=== PATIENT | male | born 1970 | race African-American/Black ===

== ENCOUNTER 2017-07-03 13:52 | Inpatient (IN) | payer OTHER ==
[~2017-07-03] VITALS: Ht 162.6 cm; Wt 98.5 kg
[2017-07-03] VITALS (11 sets, daily range): BP systolic 114–152; BP diastolic 67–85; PULSE 55–77; RESP 16–21; TEMP 98–98.2; O2SAT 98–100
[~2017-07-03 13:52] MED LIST: LORTA5 PO; Z.0.NO CURRENT MEDS; ZOFR4TAB3 SL
[2017-07-03] MEDS ORDERED: SODIUM CHLOR 0.9% 1000 ML INJ 1,000 ML IV ONE (14:00)
[2017-07-03] MEDS ORDERED: SODIUM CHLORIDE 0.9% FLUSH 10 ML FLUSH IVF PRN (14:00)
[2017-07-03] MEDS ORDERED: NITROGLYCERIN 2% OINT 1 GM PACKET TOPICAL ONE (14:00)
[2017-07-03] MEDS ORDERED: HEPARIN SODIUM - IV 10,000 UNITS/10 ML VIAL IV PUSH STA (14:00)
--- NOTE | 2017-07-03 14:06 | PD ---
HPI Chief Complaint: STEMI Alert Time Seen by Provider: 13:59 Travel History International Travel<30 days: No Contact w/Intl Traveler<30days: No Traveled to known affect area: No History of Present Illness HPI 46 years old male complained of chest pain. Patient states that the chest pain started about 3 hours prior to arrival. Patient states the pain is pressure pain started in the left chest with radiation the left arm. Patient complains of nausea palpitation and diaphoresis with the chest pain. Patient denies any fever chills. Patient denies any coughing congestion. Patient denies history hypertension, diabetes, hyperlipidemia. Patient is a smoker. Patient denies family history of heart disease. EMS was called. Patient was given aspirin 325 mg p.o. Patient also was given nitroglycerin sublingually with partial relief of the pain. On a scale from 1-10 the chest pain is a 4 now. PFSH Past Medical History Heart Rhythm Problems: No Cardiac Catheterization: No Cardiovascular Problems: Yes High Cholesterol: No Chest Pain: Yes Congestive Heart Failure: No Diabetes: No Diminished Hearing: No Hypertension: No Immunizations Current: Yes Myocardial Infarction: No Past Surgical History Coronary Artery Bypass Graft: No Social History Alcohol Use: No Tobacco Use: Yes (03/11 PPD) Substance Use: No Allergies-Medications (Allergen,Severity, Reaction): Coded Allergies: No Known Allergies (Verified , 08/31/15) Reported Meds & Prescriptions Reported Meds & Active Scripts Active Zofran ODT (Ondansetron HCl) 4 Mg Tab 4 Mg SL QID PRN FOR NAUSEA/VOMITING Lortab 5/325 Tab (Hydrocodone-Acetaminophen) 1 Tab Tab 1 Tab PO QID PRN Reported No Current Meds (Miscellaneous Medication) Misc Review of Systems General / Constitutional: No: Fever Eyes: No: Visual changes HENT: No: Headaches Cardiovascular: Positive: Chest Pain or Discomfort Respiratory: No: Shortness of Breath Gastrointestinal: No: Abdominal Pain Genitourinary: No: Dysuria Musculoskeletal: No: Pain Skin: No Rash Neurologic: No: Weakness Psychiatric: No: Depression Endocrine: No: Polydipsia Hematologic/Lymphatic: No: Easy Bruising Physical Exam Narrative GENERAL: Well-nourished, well-developed patient. SKIN: Focused skin assessment warm/dry. HEAD: Normocephalic. EYES: No scleral icterus. No injection or drainage. NECK: Supple, trachea midline. No JVD or lymphadenopathy. CARDIOVASCULAR: Regular rate and rhythm without murmurs, gallops, or rubs. RESPIRATORY: Breath sounds equal bilaterally. No accessory muscle use. GASTROINTESTINAL: Abdomen soft, non-tender, nondistended. MUSCULOSKELETAL: No cyanosis, or edema. BACK: Nontender without obvious deformity. No CVA tenderness. Neurologic exam normal. Data Data Last Documented VS Vital Signs Date Time Temp Pulse Resp B/P (MAP) Pulse Ox O2 Delivery O2 Flow Rate FiO2 07/03/17 14:02 98 Nasal Cannula 2.00 07/03/17 13:55 98.1 55 21 152/85 (107) Orders Orders Troponin I (07/03/17 14:00) Ckmb (Isoenzyme) Profile (07/03/17 14:00) Complete Blood Count With Diff (07/03/17 14:00) I-Stat Profile (07/03/17 14:00) I-Stat Creatinine (07/03/17 14:00) Calcium (07/03/17 14:00) Magnesium (Mg) (07/03/17 14:00) Prothrombin Time / Inr (Pt) (07/03/17 14:00) Act Partial Throm Time (Ptt) (07/03/17 14:00) B-Type Natriuretic Peptide (07/03/17 14:00) Chest, Single Ap (07/03/17 14:00) Electrocardiogram (07/03/17 14:00) Oxygen Administration (07/03/17 14:00) Iv Access Insert/Monitor (07/03/17 14:00) Oximetry (07/03/17 14:00) Sodium Chlor 0.9% 1000 Ml Inj (Ns 1000 M (07/03/17 14:00) Sodium Chloride 0.9% Flush (Ns Flush) (07/03/17 14:00) Heparin Inj (Heparin Inj) (07/03/17 14:00) Nitroglycerin 2% Oint (Nitroglycerin 2% (07/03/17 14:00) Admit Order (Ed Use Only) (07/03/17 14:02) MDM Medical Decision Making Medical Screen Exam Complete: Yes Emergency Medical Condition: Yes Interpretation(s) EKG show ST elevation in this 2, 3, aVF, T-wave inversion with mild ST depression in V1. Differential Diagnosis Differential diagnosis including STEMI. Narrative Course 46 years old male with chest pain. EKG show ST elevation inferior leads. STEMI was called. Patient was given heparin and Nitropaste. Electrical Mechanic, Dr. Berger, was consulted. Patient will be transferred immediately to the Station Engineer. Diagnosis Primary Impression: STEMI (ST elevation myocardial infarction) Qualified Codes: I21.11 - ST elevation (STEMI) myocardial infarction involving right coronary artery Admitting Information Admitting Physician Requests: Admit Rick Escobedo MD Jul 03, 2017 14:06
[2017-07-03] MEDS ORDERED: HEPARIN-NS/PF FLUSH BAG 2,000 ML IV FLUSH ONE (14:10)
[2017-07-03] MEDS ORDERED: NITROGLYCERIN INJ 5 ML ONE (14:11)
[2017-07-03] MEDS ORDERED: MIDAZOLAM HCL 2 MG/2 ML VIAL ONE ×2 (14:11→14:42)
[2017-07-03] MEDS ORDERED: HEPARIN SODIUM - IV 10,000 UNITS/10 ML VIAL ONE (14:11)
[2017-07-03 14:26] LABS: AUTOMATED NEUTROPHIL # 3.1 TH/MM3 (1.8-7.7); BASOPHIL # 0.1 TH/MM3 (0-0.2); EOSINOPHIL # 0.3 TH/MM3 (0-0.4); EOSINOPHIL % 4.2 % (0.0-4.0); HEMATOCRIT 40.4 % (39.0-51.0); HEMOGLOBIN 13.4 GM/DL (13.0-17.0); LYMPH % 36.4 % (9.0-44.0); LYMPHOCYTE # 2.3 TH/MM3 (1.0-4.8); MEAN CORPUSCULAR HEMOGLOBIN 32.3 PG (27.0-34.0); MEAN CORPUSCULAR HGB CONC 33.3 % (32.0-36.0); MEAN PLATELET VOLUME 9.6 FL (7.0-11.0); MONO % 8.4 % (0.0-8.0); MONOCYTE # 0.5 TH/MM3 (0-0.9); PLATELET COUNT 277 TH/MM3 (150-450); RED BLOOD COUNT 4.16 MIL/MM3 (4.50-5.90); RED CELL DISTRIBUTION WIDTH 13.2 % (11.6-17.2); WHITE BLOOD COUNT 6.2 TH/MM3 (4.0-11.0)
[2017-07-03] MEDS ORDERED: CANGRELOR TETRASODIUM 50,000 MCG VIAL ONE (14:29)
[2017-07-03 14:32] LABS: PROTHROMBIN TIME - PATIENT 10.3 SEC (9.8-11.6)
[2017-07-03] MEDS ORDERED: TICAGRELOR 90 MG TAB PO ONE (14:46)
[2017-07-03 14:47] LABS: MAGNESIUM 1.7 MG/DL (1.5-2.5)
[2017-07-03 14:49] LABS: TROPONIN I LESS THAN 0.02 NG/ML (0.02-0.05)
[2017-07-03] MEDS ORDERED: CANGRELOR INJ 50,000 MCG in SODIUM CHLOR 0.9% 250 ML INJ 250 ML IV ONE (15:00)
[2017-07-03] MEDS ORDERED: MISC INFORMATION XX ONE (15:00)
[2017-07-03] MEDS ORDERED: oxyCODONE/ACETAMINOPHEN 5 MG/325 MG TAB PO PRN (15:00)
[2017-07-03] MEDS ORDERED: LIDOCAINE 2% JELLY 30 ML TUBE TOP PRN (15:00)
[2017-07-03] MEDS ORDERED: BACITRACIN OINT 0.9 GM PKT TOP ONE (15:00)
--- NOTE | 2017-07-03 15:06 | RADRPT ---
EXAM DATE/TIME: 07/03/2017 14:05 [place] COMPARISON: No previous studies available for comparison. INDICATIONS : Stemi alert. MEDICAL HISTORY : None. SURGICAL HISTORY : None. ENCOUNTER: Initial ACUITY: 1 day PAIN SCORE: 6/10 LOCATION: Bilateral chest FINDINGS: A single view of the chest demonstrates the lungs to be symmetrically aerated without evidence of mas s, infiltrate or effusion. The cardiomediastinal contours are unremarkable. Osseous structures are intact. CONCLUSION: No acute disease. Yung Victoria MD on July 03, 2017 at 15:00 Board Certified Radiologist. This report was verified electronically.
[2017-07-03] MEDS ORDERED: PILL SPLITTER OTHER PRN (15:15)
--- NOTE | 2017-07-03 15:46 | CATHPROC ---
[facility] HIS Report Study Information Study Number Admission Scheduled Start Study Start [id number] Jul 03 2017 1:52PM 07/03/2017 Jul 03 2017 2:11PM [place] Service Cardiac Catheterization Admit Source Facility Department Emergency department [facility] - Grab Driver Physician and Clinical Staff Initial Chong Barahona Cinder Dump Crane Operator Adriane Perez,DEANDRE Cinder Dump Crane OperatorMalcolm Zhu RN Cinder Dump Crane Operator Gerald Resendiz RN Recorder Cleo Connelly BSN Scrub Garland Contreras RCIS(BS) Procedures Performed Procedure Location (Site) Vessel Name Coronary Angiograms LCA Left Coronary Coronary Angiograms RCA Right Coronary Drug Eluting Inflatio OM1 Dist CIRC Drug Eluting Inflatio OM1 Prox CIRC L Heart Cath PTCA OM1 Prox CIRC Wire insertion Radial (right) Radial Art. Equipment Time Industrial Organizational Psychologist Description Size Mfg Part Number Used/Scraped TRANSDUCER, TRUWAVE [id number] 14:18 LOPEZ BALTAZAR * Used W/STOCKCOCK *[id number] *[id number] *[id number] *[id number] 14:18 [employer] INDUSTRIES PACK, CCL CUSTOM * Used *[id number] 14:18 [employer] SUPPORT, ARTERIAL ADULT [id number] *[id number] Used [id number] 14:18 [employer] PACER PEN, SKIN DUAL W/ RULER * Used *[id number] 14:37 MED[employer] BALLOON, 2.5 X 15MM EUPHORA 15MM Used *[id number] 14:39 [employer] STENT, 2.5 15MM SIDNEY 2.5 15MM Used *[id number] 14:42 [employer] STENT, 2.5 30MM SIDNEY 2.5 30MM Used *[id number] 14:38 [employer] MEDICAL 30 SHAHBAZ INDEFLATOR Used *[id number] BAND, RADIAL COMPRESSION TR [id number] 14:49 [employer] MEDICAL 29CM Used LARGE 29 *[id number] SHEATH, FR6 RADIAL PRELUDE 14:18 [employer] FR 6 [id number] Used EASE 11CM [id number] 14:18 [employer] WIRE, EXCHANGE 260CM 3MMJ 260CM Used *[id number] 14:18 [employer] OMNIPAQUE, 350 MG, 150ML 150ML [id number] Used [id number] 14:18 [employer] BLANKET,WARM AIR CCL * Used *[id number] WIRE, RUNTHROUGH NS FLOPPY [id number] 14:29 [employer] MEDICAL 180CM Used .014 180CM *[id number] Equipment Model, Serial, Lot Number and Expiration Data Description Model Number Serial Number Lot Number Expiration Date STENT, 2.5 15MM SIDNEY [id number] 02-11-2019 STENT, 2.5 30MM SIDNEY [id number] 08-05-2018 History: Current Medications Medication Dosage/Unit Route Frequency Last Date/Time Taken ASA 325 mg 07/03/2017 History: Risk Factors Family History of Hypertension Dyslipidemia Previous HI Previous Heart Failure Premature CAD No No No No No Prior Valve Prior PCI Prior CABG Surgery No No No Cerebrovascular Peripheral Artery Chronic Lung On Dialysis Diabetes Disease Disease Disease No No No No No History: Symptoms/Diagnosis Selection Items Chest pain History: Stress Tests Stress or Imaging Studies Performed No History: Other Current Smoker Method Packs a Day Years Used Pack Years Yes Cigarettes 2 34 68 Labs Hgb (g/dl) Hct (%) 11.60-17.00 35.00-51.00 14.3 42 Creatinine (mg/dl) 0.50-1.30 1.0 Na (meq/l) K (meq/l) 136.00-145.00 3.50-5.10 138 3.9 Medication Medication Total Dose (Bolus/Oral) Medication Total Dosage/Unit 1% XYLOCAINE 5 mL BRILINTA 180 mg FENTANYL 50 mcg HEPARIN 5000 units NTG (IC) 400 mcg VERSED 3 mg Medications (Bolus/Oral) Medication Time Given Dosage/Unit Administered By Reason VERSED 07/03/2017 2:26:45 PM 2 mg Adriane Perez 2 mg VERSED given in lab by Adriane Perez, RN in Left Antecubital via Peripheral IV. Ordered by Chong Fitzgerald. 1% XYLOCAINE 07/03/2017 2:27:26 PM 5 mL Chong Berger 5 mL 1% XYLOCAINE given in lab by Chong Berger in Right Radial via Subcutaneous. Ordered by Chong Berger. FENTANYL 07/03/2017 2:27:28 PM 25 mcg Gerald Resendiz 25 mcg FENTANYL given in lab by Gerald Resendiz, RN via Peripheral IV. Ordered by Chong Berger. NTG (IC) 07/03/2017 2:29:25 PM 200 mcg Cohng Berger 100 mcg NTG given in lab by Chong Berger via Intra-arterial. Ordered by Cohng Berger. HEPARIN 07/03/2017 2:30:42 PM 5000 units Gerald Resendiz 5000 units HEPARIN given in lab by Gerald Resendiz RN via Peripheral IV. Ordered by Chong Berger. BRILINTA 07/03/2017 2:40:15 PM 180 mg Gerald Resendiz 180 mg BRILINTA given in lab by Gerald Resendiz RN via Oral. Ordered by Chong Berger. FENTANYL 07/03/2017 2:41:16 PM 25 mcg Gerald Resendiz 25 mcg FENTANYL given in lab by Gerald Resendiz RN via Peripheral IV. Ordered by Chong Berger. NTG (IC) 07/03/2017 2:43:37 PM 200 mcg Chong Berger 200 mcg NTG (IC) given in lab by Chong Berger via Intra-coronary. Ordered by Chong Berger. VERSED 07/03/2017 2:44:59 PM 1 mg Adriane Perez 1 mg VERSED given in lab by Adriane Perez RN in Left Antecubital via Peripheral IV. Ordered by Chong Fitzgerald. Medication (Drip) Medication Time Given Dosage/Unit Concentration/Unit Diluent (ml) Solution KENGREAL BOLUS 07/03/2017 2:37:01 PM 14 mL 14 mL KENGREAL BOLUS given in lab by Gerald Resendiz RN via Peripheral IV. Ordered by Chong Berger. KENGREAL DRIP 07/03/2017 2:39:14 PM 4 mcg/kg/min 50 mg 250 NaCl .9 4 mcg/kg/min KENGREAL DRIP given in lab by Gerald Resendiz RN via Peripheral IV. Pump/Drip Flow = 116.4 ml/hr using NaCl .9 with a concentration of 50 mg in 250 ml. Ordered by Chong Berger. Initial Case Assessment Cardiovascular HR Rhythm NIBP Chest Pain 100 sr 137/91 6 Edema Present Skin color Skin None Normal Warm Dry Circulatory - Right Pulses Dorsalis Pedis Femoral Radial 2 2 2 Scale (0,1,2,3,4,d) Scale (0,1,2,3,4,d) Circulatory - Lower Extremities Color Lower Right Color Lower Left Normal Normal Neurological State Oriented to time-place- Alert Moves all extremities person Respiration - General Respiration Rate SpO2 (%) O2 (lpm) (B/min) 14 100 2 Final Case Assessment Cardiovascular HR Rhythm NIBP Chest Pain 70 sr 108/63 0 Edema Present Skin color Skin None Normal Warm Dry Circulatory - Right Pulses Dorsalis Pedis Femoral Radial 2 2 2 Scale (0,1,2,3,4,d) Scale (0,1,2,3,4,d) Circulatory - Lower Extremities Color Lower Right Color Lower Left Normal Normal Neurological State Oriented to time-place- Alert Moves all extremities person Respiration - General Respiration Rate SpO2 (%) O2 (lpm) (B/min) 16 98 2 Chronological Log Time Study Chronological Log 14:03:09 Emergency Room notified that Grab Driver is ready. 14:21:40 Patient arrived via Bed. 14:21:58 MD arrived. 14:24:57 Patient Name, D.O.B, / Armband Verified By R.N. 14:24:59 Consent signed by the physician and the patient and verified by the Grab Driver staff. 14:25:06 Verbal Stimulation=2 Physical Stimulation=2 Airway=2 Respiration=2 TOTAL=8. (0=absent, 1=li mited, 2=present) 14:25:20 Patient has been NPO for Less than 6Hrs. 14:25:20 Skin Breakdown- none per patient 14:25:29 Disposable Defibrillator Pads Placed On Patient. 14:25:33 History and physical on the chart or being dictated. 14:25:34 A # 20 IV was noted in the Antecubital (left). Grade = 0 Time Out. Correct patient, correct procedure, correct physician, power injector loaded, or not loaded with contrast with 14:25:49 surgical team present. Time Out Concurred by MD and individual staff in procedure. 14:25:52 Case Start 14:26:03 History and physical on the chart or being dictated. Assessment: Initial Case, RA=240 BPM, Rhythm=sr, GGFS=625/91 mmhg, Chest Pain=6, Edema=None, Co tavia=Normal, Skin = Warm, Dry Right Pulses: Marco Ped=2, Femoral=2, Radial=2 14:26:05 Lower Right Extremities: Color=Normal Lower Left Extremities: Color=Normal Neurological: State=Alert, Ox3, VALDOVINOS Respiration: Resp=14 B/min, VoG9=251 %, O2=2 lpm Vitals capture started with the following parameters, Patient=Adult, Interval=5 min, Initial Pr ybbiyz=516 mmHg, 14:26:08 Deflation Rate=5 mmHg, Cuff placed on Left Arm 14:26:34 Reference ECG taken 14:26:45 2 mg VERSED given in lab by Adriane Perez RN in Left Antecubital via Peripheral IV. Orde red by Chong Berger. 14:26:51 HR=56 bpm, NVZL=891/91 mmhg, ArO7=661.0 %, Resp=11 B/min, Pain=6, Siobhan=10, Espitia=2 14:26:51 Right Radial and groin(s) prepped with 2% chlorhexidine, and draped after a 3 min. waiting time. 14:27:26 5 mL 1% XYLOCAINE given in lab by Chong Berger in Right Radial via Subcutaneous. Ordered by Chong Berger. 14:27:28 25 mcg FENTANYL given in lab by Gerald Resendiz RN via Peripheral IV. Ordered by Vonnie Berger 14:27:46 Pressure channel 1 zeroed. 14:28:15 Access site was Radial Artery. A SHEATH, FR6 RADIAL PRELUDE EASE 11CM FR 6 was advanced into the Radial (right) using the Perc utaneous 14:28:33 technique. A JL 3.5 INFINITI CATHETER FR 5 was advanced over a wire. OMNIPAQUE, 350 MG, 150ML 150ML was us ed for 14:29:20 injections. 14:29:25 100 mcg NTG given in lab by Chong Berger via Intra-arterial. Ordered by Chong Berger. 14:30:30 The LCA was injected and visualized at various angles. OMNIPAQUE, 350 MG, 150ML 150ML used . 14:30:42 5000 units HEPARIN given in lab by Gerald Resendiz, DEANDRE via Peripheral IV. Ordered by St madelyn Berger. After removing the current catheter a JR 5.0 INFINITI CATHETER FR 5 was advanced over a WIRE, E XCHANGE 260CM 14:31:10 3MMJ 260CM. 14:31:54 HR=65 bpm, KJLT=141/82 mmhg, YoM2=341.0 %, Resp=9 B/min, Pain=6, Siobhan=10, Espitia=2 14:32:43 The RCA was injected and visualized at various angles. OMNIPAQUE, 350 MG, 150ML 150ML used . After removing the current catheter a AL 1 GUIDE CATHETER FR 6 was advanced over a WIRE, EXCHAN GE 260CM 14:33:04 3MMJ 260CM. Recorded Pressure: Ao, HR=65, Condition=Condition 1 14:34:31 (Aorta) Ao 131/77/99 14:34:59 A WIRE, RUNTHROUGH NS FLOPPY .014 180CM 180CM was inserted via Radial (right). 14:35:41 Interventional wire has crossed the lesion A BALLOON, 2.5 X 15MM EUPHORA 15MM was inserted over WIRE, RUNTHROUGH NS FLOPPY .014 180CM 180C M via 14:35:46 the Radial (right). A BALLOON, 2.5 X 15MM EUPHORA 15MM over a WIRE, RUNTHROUGH NS FLOPPY .014 180CM 180CM in the OM 1 14:36:03 Prox was inflated using a 30 SHAHBAZ INDEFLATOR at 8 shahbaz for 15 sec. 14:36:42 Balloon Removed. 14:37:01 14 mL KENGREAL BOLUS given in lab by Gerald Resendiz RN via Peripheral IV. Ordered by Chong Berger. 14:37:32 HR=95 bpm, DAKF=890/85 mmhg, SpO2=98.0 %, Resp=13 B/min, Pain=6, Siobhan=10, Espitia=2 4 mcg/kg/min KENGREAL DRIP given in lab by Gerald Resendiz RN via Peripheral IV. Pump/Drip Flow = 116.4 ml/hr using 14:39:14 NaCl .9 with a concentration of 50 mg in 250 ml. Ordered by Chong Berger. A STENT, 2.5 15MM SIDNEY 2.5 15MM was advanced through a AL 1 GUIDE CATHETER FR 6 over a WIRE, RU NTHROUGH 14:39:44 NS FLOPPY .014 180CM 180CM. 14:40:15 180 mg BRILINTA given in lab by Gerald Resendiz RN via Oral. Ordered by Chong Berger. A STENT, 2.5 15MM SIDNEY 2.5 15MM was deployed using a 30 SHAHBAZ INDEFLATOR at 6 atmospheres for 10 seconds in 14:40:48 the OM1 Dist. 14:41:16 25 mcg FENTANYL given in lab by Gerald Resendiz, RN via Peripheral IV. Ordered by Vonnie Berger 14:41:48 Delivery device removed A STENT, 2.5 30MM SIDNEY 2.5 30MM was advanced through a AL 1 GUIDE CATHETER FR 6 over a WIRE, R UNTHROUGH 14:42:21 NS FLOPPY .014 180CM 180CM. 14:42:39 HR=80 bpm, WDCS=121/68 mmhg, HtM9=404.0 %, Resp=15 B/min A STENT, 2.5 30MM SIDNEY 2.5 30MM was deployed using a 30 SHAHBAZ INDEFLATOR at 18 atmospheres for 1 0 seconds in 14:42:43 the OM1 Prox. 14:43:10 Delivery device removed 14:43:37 200 mcg NTG (IC) given in lab by Chong Berger via Intra-coronary. Ordered by Lucas Berger 14:44:57 Wire removed 14:44:59 1 mg VERSED given in lab by Adriane Perez, DEANDRE in Left Antecubital via Peripheral IV. Ord ered by Chong Berger. 14:45:06 Catheter was removed 14:46:51 HR=76 bpm, TAUS=601/63 mmhg, SpO2=97.0 %, Resp=15 B/min, Pain=6, Siobhan=10, Espitia=2 14:47:25 Case End Radial Compression Device Used. 12 mLs of air placed in BAND, RADIAL COMPRESSION TR LARGE 29 2 9CM. Affected 14:48:36 hand 96 % O2 saturation. 14:49:15 No case complications noted. 14:49:16 Cine recording checked. 14:49:18 Bedside Report will be given. 14:49:24 Implantable Device card placed in patient's chart. 14:49:29 A Left Heart Cath was performed. 14:51:52 HR=68 bpm, ACNM=092/65 mmhg, SpO2=98.0 %, Resp=23 B/min, Pain=0, Siobhan=10, Espitia=2 Assessment: Final Case, HR=70 BPM, Rhythm=sr, LDJL=720/63 mmhg, Chest Pain=0, Edema=None, [place] r=Normal, Skin = Warm, Dry Right Pulses: Marco Ped=2, Femoral=2, Radial=2 14:53:20 Lower Right Extremities: Color=Normal Lower Left Extremities: Color=Normal Neurological: State=Alert, Ox3, VALDOVINOS Respiration: Resp=16 B/min, SpO2=98 %, O2=2 lpm 15:00:02 Patient moved to stretcher 15:12:23 waiting on CIC bed assignment End Study - Contrast Media Used In Study Contrast Total Opened (mL) Total Used (mL) Total Wasted (mL) Omnipaque 60 60 0 End Study - Maximum Contrast Load Max Contrast Load (mL) 485.0 End Study - Radiation Exposure Fluoro Time (minutes) 3.5 End Study - Patient Disposition Complications Transferred To Interventional Outcome No Telemetry Bed successful
--- NOTE | 2017-07-03 15:47 | MA ---
cc: Chong Berger MD DATE: 07/03/[address]: [address] elevation myocardial infarction. PROCEDURES PERFORMED: 1. Fluoroscopy with interpretation. 2. Coronary angiography. 3. Percutaneous intervention with drug-eluting stents to the first obtuse marginal branch. METHOD: Risks, benefits and alternatives discussed with the patient. The patient understood and consented to the procedure. The patient was brought to catheterization lab and placed on the catheterization table. The right wrist was prepped and draped in sterile fashion. The right wrist was anesthetized with 2% lidocaine. The right radial artery was cannulated. A 6-Armenian 7 cm sheath was placed without difficulty. CORONARY ANGIOGRAPHY: 1. Left main coronary is short, but angiographically normal. 2. Left anterior descending coronary has mild luminal irregularities. There is a large diagonal branch, which has mild luminal irregularities. 3. Circumflex coronary artery gives rise to a moderate to large size first obtuse marginal branch. It is 100% occluded proximally, heavy thrombotic burden. 4. Right coronary is smaller caliber sized but does give rise to posterior descending branch, also gives rise to a fairly prominent conus branch. Only mild luminal irregularities in the right coronary. PERCUTANEOUS INTERVENTION: The left coronary circulation is selectively engaged with 6-Armenian AL1 guide catheter, 0.014 inch 180 cm Thrinaciaumo Runthrough wire was navigated down the distal obtuse marginal branch and subbranch. Heparin and cangrelor was administered throughout the entire procedure to maintain appropriate anticoagulation. A 2.5 x 15 mm RX Euphora balloon was advanced down to the level of the occlusion and dilated. Repeat angiography showed scientologist of NASRA 3 flow. There is severe residual stenosis, both at the subbranch and in the proximal mid segment. A 2.5 x 15 mm RX Resolute [place] stent was advanced down to the obtuse marginal branch distally in the subbranch and deployed to 12 atmospheres. Repeat angiography showed no residual stenosis. A 2.5 x 30 mm RX Resolute [place] stent was advanced out to the proximal first obtuse marginal branch, extending into the mid segment and deployed. Repeat angiography showed no residual stenosis, NASRA 3 flow. Wires removed, guide catheter removed. HemoBand applied. CONCLUSIONS: 1. Acute thrombotically occluded first obtuse marginal branch. 2. Successful percutaneous intervention drug-eluting stent to the first obtuse marginal branch. PLAN: The patient will be monitored closely for any post-procedural complications. We had a great angiographic result. No further significant obstructive disease. We will initiate guideline directed medical therapy. We will order a 2-D echocardiogram. Hopeful for discharge in the next day or two. Chong Berger MD DONTE/TL , 03:03 PM , 03:45 PM
--- NOTE | 2017-07-03 15:51 | MB ---
cc: Chong Berger MD DATE: 07/03/2017 DATE OF CONSULTATION: 07/03/[address]: [address]-elevation myocardial infarction. HISTORY OF PRESENT ILLNESS: This is a 46-year-old gentleman with no prior history of any major medical problems, developed acute onset of substernal chest pain radiating towards his left arm associated with diaphoresis, palpitations and nausea. He came into the emergency department. There he was found to have significant inferior ST elevation. The patient has a prior history of smoking, but no other significant risk factors. He does not really followup with a primary care doctor. ST-elevation myocardial infarction protocol was initiated. PAST MEDICAL HISTORY: None. SOCIAL HISTORY: Tobacco Use: A pack and a half a day. Denies any alcohol or drug use. ALLERGIES: NO KNOWN DRUG ALLERGIES. MEDICATIONS: Just Zofran occasionally. REVIEW OF SYSTEMS: A 12-point review of systems was performed, negative unless otherwise noted in History Of Present Illness. PHYSICAL EXAMINATION: VITAL SIGNS: Temperature is 98, pulse 55, blood pressure 152/85 mmHg. GENERAL: Alert, in moderate distress. HEENT: Pupils reactive to light and accommodation. Extraocular movements are intact. NECK: No elevation of jugular venous distention. No thyromegaly. No lymphadenopathy. No carotid bruits. LUNGS: Clear to auscultation bilaterally. CARDIOVASCULAR EXAM: Regular without murmurs, rubs or gallops. ABDOMEN: Nontender, nondistended. Good bowel sounds. No hepatosplenomegaly. EXTREMITIES: Show no clubbing, cyanosis or edema. Good peripheral pulses. NEUROLOGIC: Cranial nerves intact. Motor, sensory grossly intact. LABORATORY DATA: WBC 6.2, hemoglobin 13.4, platelet count is 277. INR is 1. Sodium 138, potassium 3.9. First troponin 0.02. BUN is 15, creatinine is 1.0. ELECTROCARDIOGRAM: Sinus rhythm, inferior ST-elevation. ASSESSMENT: 1. ST-elevation myocardial infarction. 2. Tobacco abuse. PLAN: Given the suggestive symptoms, electrocardiographic changes, ST-elevation myocardial infarction protocol was initiated. The risks, benefits, and alternatives were discussed with the patient who is agreeable to proceed. The patient will be brought emergently to the cardiac catheterization lab for attempted revascularization. MD DONTE Cuadra/SB , 03:06 PM , 03:49 PM
[2017-07-03] MEDS ORDERED: IOHEXOL 350 MG/ML 100 ML BTL (for Cath Lab) OTHER ONE (15:52)
[2017-07-03] MEDS: TICAGRELOR 90 MG TAB PO SCH (20:27)
[2017-07-03] MEDS: METOPROLOL TARTRATE 25 MG TAB PO SCH (20:28)
[2017-07-04] VITALS (14 sets, daily range): BP systolic 101–119; BP diastolic 62–84; PULSE 56–80; RESP 16–18; TEMP 97.9–98.4; O2SAT 97–100
[2017-07-04 05:29] LABS: AUTOMATED NEUTROPHIL # 4.6 TH/MM3 (1.8-7.7); BASOPHIL # 0.1 TH/MM3 (0-0.2); BASOPHIL % 0.6 % (0.0-2.0); EOSINOPHIL # 0.2 TH/MM3 (0-0.4); EOSINOPHIL % 2.4 % (0.0-4.0); HEMATOCRIT 38.4 % (39.0-51.0); HEMOGLOBIN 12.8 GM/DL (13.0-17.0); LYMPH % 34.8 % (9.0-44.0); LYMPHOCYTE # 2.9 TH/MM3 (1.0-4.8); MEAN CELL VOLUME 95.9 FL (80.0-100.0); MEAN CORPUSCULAR HEMOGLOBIN 31.9 PG (27.0-34.0); MEAN CORPUSCULAR HGB CONC 33.3 % (32.0-36.0); MEAN PLATELET VOLUME 9.4 FL (7.0-11.0); MONO % 6.8 % (0.0-8.0); MONOCYTE # 0.6 TH/MM3 (0-0.9); NEUT % 55.4 % (16.0-70.0); PLATELET COUNT 285 TH/MM3 (150-450); RED BLOOD COUNT 4.01 MIL/MM3 (4.50-5.90); RED CELL DISTRIBUTION WIDTH 13.1 % (11.6-17.2); WHITE BLOOD COUNT 8.3 TH/MM3 (4.0-11.0)
[2017-07-04 05:53] LABS: BICARBONATE 26.1 MEQ/L (21.0-32.0); CALCIUM 8.4 MG/DL (8.5-10.1); CREATININE 0.91 MG/DL (0.60-1.30)
[2017-07-04 06:15] LABS: CHOLESTEROL/ HDL RATIO 4.43 RATIO; HDL CHOLESTEROL 34.3 MG/DL (40.0-60.0)
--- NOTE | 2017-07-04 08:03 | PD.CARD.PN ---
Subjective Subjective Remarks Doing well overnight. No chest pain, shortness breath, palpitations Objective Medications Current Medications Medications (Trade) Dose Ordered Sig/Kris Route Start Time Stop Time Status Last Admin (NS Flush) 2 ml UNSCH PRN IVF 07/03/17 14:00 07/03/17 14:08 (Percocet 5-325 Mg) 1 tab Q4H PRN PO 07/03/17 15:00 07/04/17 00:04 (Aspirin Chew) 81 mg DAILY PO 07/04/17 09:00 (Brilinta) 90 mg BID PO 07/03/17 21:00 07/03/17 20:27 (Xylocaine 2% Jelly) 1 applic UNSCH X1 PRN TOP 07/03/17 15:00 07/04/17 14:59 (Lopressor) 12.5 mg BID PO 07/03/17 21:00 07/03/17 20:28 (Lipitor) 40 mg DAILY PO 07/04/17 09:00 (Pill Splitter) 1 ea UNSCH PRN OTHER 07/03/17 15:15 Vital Signs / I&O Vital Signs Date Time Temp Pulse Resp B/P (MAP) Pulse Ox O2 Delivery O2 Flow Rate FiO2 07/04/17 05:11 64 07/04/17 04:00 56 07/04/17 03:42 98.3 67 18 101/62 (75) 97 07/04/17 03:00 60 07/04/17 02:00 60 07/04/17 01:30 18 07/04/17 01:00 58 07/04/17 00:37 56 07/03/17 23:56 98.2 57 18 125/78 (94) 99 07/03/17 23:00 65 07/03/17 22:00 74 07/03/17 21:00 60 07/03/17 20:19 98.2 77 19 117/74 (88) 100 07/03/17 20:00 58 07/03/17 19:00 67 07/03/17 16:15 98.0 71 16 114/67 (83) 99 07/03/17 14:02 99 Nasal Cannula 2.00 07/03/17 14:02 98 Nasal Cannula 2.00 07/03/17 13:55 98.1 55 21 152/85 (107) 98 07/03/17 13:50 100 Nasal Cannula 2.00 07/03/17 13:50 100 2.00 I/O 07/03/17 07/03/17 07/03/17 07/04/17 07/04/17 07/04/17 07:00 15:00 23:00 07:00 15:00 23:00 Intake Total 420 ml Output Total 550 ml Balance -130 ml Intake Oral 420 ml Output Urine Total 550 ml Physical Exam GENERAL: Well-developed well-nourished. In no acute distress. NECK: No carotid bruits. No JVD. CARDIOVASCULAR: Regular rate and rhythm. No murmur appreciated. RESPIRATORY: No accessory muscle use. Clear to auscultation. Breath sounds equal bilaterally. MUSCULOSKELETAL: No clubbing or cyanosis. No edema. NEUROLOGICAL: Awake and alert. Normal speech. SKIN: RUE pulses intact. Laboratory Laboratory Tests Test 07/03/17 14:00 07/04/17 03:37 White Blood Count 6.2 TH/MM3 8.3 TH/MM3 Red Blood Count 4.16 MIL/MM3 4.01 MIL/MM3 Hemoglobin 13.4 GM/DL 12.8 GM/DL Bedside Hemoglobin 14.3 G/DL Hematocrit 40.4 % 38.4 % Bedside Hematocrit 42.0 % Mean Corpuscular Volume 97.0 FL 95.9 FL Mean Corpuscular Hemoglobin 32.3 PG 31.9 PG Mean Corpuscular Hemoglobin Concent 33.3 % 33.3 % Red Cell Distribution Width 13.2 % 13.1 % Platelet Count 277 TH/MM3 285 TH/MM3 Mean Platelet Volume 9.6 FL 9.4 FL Neutrophils (%) (Auto) 50.0 % 55.4 % Lymphocytes (%) (Auto) 36.4 % 34.8 % Monocytes (%) (Auto) 8.4 % 6.8 % Eosinophils (%) (Auto) 4.2 % 2.4 % Basophils (%) (Auto) 1.0 % 0.6 % Neutrophils # (Auto) 3.1 TH/MM3 4.6 TH/MM3 Lymphocytes # (Auto) 2.3 TH/MM3 2.9 TH/MM3 Monocytes # (Auto) 0.5 TH/MM3 0.6 TH/MM3 Eosinophils # (Auto) 0.3 TH/MM3 0.2 TH/MM3 Basophils # (Auto) 0.1 TH/MM3 0.1 TH/MM3 CBC Comment DIFF FINAL DIFF FINAL Differential Comment Prothrombin Time 10.3 SEC Prothromb Time International Ratio 1.0 RATIO Activated Partial Thromboplast Time 24.7 SEC Bedside Sodium 138 MMOL/L Bedside Potassium 3.9 MMOL/L Bedside Chloride 99 MMOL/L Bedside Blood Urea Nitrogen 15 MG/DL Bedside Creatinine 1.0 MG/DL Bedside Glucose 182 MG/DL Calcium Level 8.0 MG/DL 8.4 MG/DL Magnesium Level 1.7 MG/DL Total Creatine Kinase 332 U/L 2567 U/L Creatine Kinase MB 3.2 NG/ML 187.9 NG/ML Creatine Kinase MB % 1.0 % 7.3 % Troponin I LESS THAN 0.02 NG/ML B-Type Natriuretic Peptide 12 PG/ML Blood Urea Nitrogen 12 MG/DL Creatinine 0.91 MG/DL Random Glucose 125 MG/DL Sodium Level 141 MEQ/L Potassium Level 3.7 MEQ/L Chloride Level 105 MEQ/L Carbon Dioxide Level 26.1 MEQ/L Anion Gap 10 MEQ/L Estimat Glomerular Filtration Rate 109 ML/MIN Triglycerides Level 59 MG/DL Cholesterol Level 152 MG/DL LDL Cholesterol 106 MG/DL HDL Cholesterol 34.3 MG/DL Cholesterol/HDL Ratio 4.43 RATIO Imaging Last 24 hours Impressions Chest X-Ray 07/03/17 1400 Signed Impressions: Service Date/Time: June 14:05 - CONCLUSION: No acute disease. Yung Victoria MD Assessment and Plan Assessment and Plan 46-year-old male with no past medical history who presented as a STEMI alert. Patient was found to have occluded first obtuse marginal branch now status post PCI. STEMI: Doing well overnight. Continue on aspirin, Brilinta, metoprolol, atorvastatin. After echocardiogram is obtained, will plan on discharge this morning. Discussed Condition With Patient, Gopi Morris Jul 04, 2017 08:03
[2017-07-04] MEDS ORDERED: ATOR40TA16 PO (08:05)
[2017-07-04] MEDS ORDERED: ASPI81 PO (08:05)
[2017-07-04] MEDS ORDERED: METO25TA3 PO (08:05)
[2017-07-04] MEDS ORDERED: BRIL90TA PO (08:05)
[2017-07-04] MEDS ORDERED: ATORVASTATIN 40 MG TAB PO SCH (09:00)
[2017-07-04] MEDS ORDERED: ASPIRIN 81 MG CHEW TAB PO SCH (09:00)
--- NOTE | 2017-07-04 09:19 | HHI.DS ---
Discharge Summary Admission Date Jul 03, 2017 at 14:04 Admitting Diagnosis STEMI (1) STEMI (ST elevation myocardial infarction) ICD Codes: I21.3 - ST elevation (STEMI) myocardial infarction of unspecified site Status: Acute Procedures [facility] PCI OM CBC/BMP: 07/04/17 0337 07/04/17 0337 Significant Findings Laboratory Tests Test 07/03/17 14:00 07/04/17 03:37 Red Blood Count 4.16 MIL/MM3 (4.50-5.90) 4.01 MIL/MM3 (4.50-5.90) Monocytes (%) (Auto) 8.4 % (0.0-8.0) Eosinophils (%) (Auto) 4.2 % (0.0-4.0) Bedside Chloride 99 MMOL/L (102-111) Bedside Glucose 182 MG/DL (68-110) Calcium Level 8.0 MG/DL (8.5-10.1) 8.4 MG/DL (8.5-10.1) Total Creatine Kinase 332 U/L (39-308) 2567 U/L (39-308) Troponin I LESS THAN 0.02 NG/ML Hemoglobin 12.8 GM/DL (13.0-17.0) Hematocrit 38.4 % (39.0-51.0) Random Glucose 125 MG/DL (74-106) Creatine Kinase MB 187.9 NG/ML (0.5-3.6) Creatine Kinase MB % 7.3 % (0.0-4.0) LDL Cholesterol 106 MG/DL (0-99) HDL Cholesterol 34.3 MG/DL (40.0-60.0) PE at Discharge GENERAL: SKIN: Warm and dry. HEAD: Normocephalic. EYES: No scleral icterus. No injection or drainage. NECK: Supple, trachea midline. No JVD or lymphadenopathy. CARDIOVASCULAR: Regular rate and rhythm without murmurs, gallops, or rubs. RESPIRATORY: Breath sounds equal bilaterally. No accessory muscle use. GASTROINTESTINAL: Abdomen soft, non-tender, nondistended. MUSCULOSKELETAL: No cyanosis, or edema. BACK: Nontender without obvious deformity. No CVA tenderness. Hospital Course did well overnight no events Pt Condition on Discharge: Good Discharge Disposition: Discharge Home Discharge Instructions DIET: Follow Instructions for: Heart Healthy Diet Activities you can perform: Regular-No Restrictions Activities to avoid: Strenuous Activity Chong Berger MD Jul 04, 2017 09:19
[2017-07-04] MEDS: TICAGRELOR 90 MG TAB PO SCH (09:55)
[2017-07-04] MEDS: METOPROLOL TARTRATE 25 MG TAB PO SCH (09:56)
--- NOTE | 2017-07-04 11:03 | ECHRPT ---
Indication: CHEST PAIN CONCLUSIONS Normal left ventricular size. Wall thickness is normal. Mild mitral valve regurgitation. There is mild tricuspid valve regurgitation. The estimated pulmonary arterial pressure is 30 mmHg. The pulmonary valve is not well visualized. BP: / HR: Rhythm: MEASUREMENTS (Male / Female) Normal Values Technical Quality: 2D ECHO LV Diastolic Diameter PLAX 5.2 cm 4.2 - 5.9 / 3.9 - 5.3 cm LV Systolic Diameter PLAX 3.9 cm IVS Diastolic Thickness 0.7 cm 0.6 - 1.0 / 0.6 - 0.9 cm LVPW Diastolic Thickness 0.8 cm 0.6 - 1.0 / 0.6 - 0.9 cm LV Relative Wall Thickness 0.3 RV Internal Dim ED PLAX 1.7 cm DOPPLER Mitral E Point Velocity 90.7 cm/s Mitral A Point Velocity 99.3 cm/s Mitral E to A Ratio 0.9 TR Peak Velocity 250.0 cm/s TR Peak Gradient 25.0 mmHg FINDINGS LEFT VENTRICLE Normal left ventricular size. Wall thickness is normal. The left ventricular systolic function is normal with an estimated ejection fraction in the range of 60-65%. RIGHT VENTRICLE Normal right ventricular size and systolic function. LEFT ATRIUM The left atrial size is normal. RIGHT ATRIUM The right atrial size is normal. ATRIAL SEPTUM Normal atrial septal thickness without atrial level shunting by limited color doppler interrogation. AORTA The aortic root and proximal ascending aorta are normal in size on limited imaging. MITRAL VALVE Mild mitral valve regurgitation. AORTIC VALVE Trileaflet aortic valve. No aortic valve stenosis or regurgitation. TRICUSPID VALVE There is mild tricuspid valve regurgitation. The estimated pulmonary arterial pressure is 30 mmHg. PULMONARY VALVE The pulmonary valve is not well visualized. VESSELS The inferior vena cava is normal in size. PERICARDIUM No pericardial effusion. Chong Berger MD, FACC (Electronically Signed) Final Date:04 July 2017 11:02
--- NOTE | 2017-07-04 13:22 | EKG ---
Date Performed: 07/03/2017 Time Performed: 13:55:54 PTAGE: 46 years EKG: Sinus rhythm WITH SINUS ARRHYTHMIA ST ELEVATION, CONSIDER INFERIOR INJURY ACUTE PA Compared to PREVIOUS TRACING ST segment elevation consistent with inferior infarction is new PREVIOU S TRACIN04/06/09 DOCTOR: Manuel Dash Interpretating Date/Time 07/04/2017 13:20:35
--- NOTE | 2017-07-04 13:22 | EKG ---
Date Performed: 07/04/2017 Time Performed: 04:56:12 PTAGE: 46 years EKG: Sinus bradycardia Possible inferior infarct - age undetermined Compared to previous tracing small Q waves are now noted in the inferior leads but with resolution of ST segment elevation Abnorm al ECG PREVIOUS TRACING : 07/03/2017 13.55 DOCTOR: Manuel Dash Interpretating Date/Time 07/04/2017 13:21:03
== END 2017-07-04 11:58 | disposition home or self-care (01) | DRG 247 ==
LOC: NEPC 13:52 → NEDA 14:04 → HCIS 16:13
PROVIDERS: ADMIT Internal Medicine; ATTEND Internal Medicine
PROC: 027035Z Dilation of Coronary Artery, One Artery with Two Drug-eluting Intraluminal Devices, Percutaneous Approach (ICD-10-PCS; principal; 2017-07-03)
PROC: 4A023N7 Measurement of Cardiac Sampling and Pressure, Left Heart, Percutaneous Approach (ICD-10-PCS; 2017-07-03)
PROC: B2111ZZ Fluoroscopy of Multiple Coronary Arteries using Low Osmolar Contrast (ICD-10-PCS; 2017-07-03)
DX: I21.11 ST elevation (STEMI) myocardial infarction involving right coronary artery (principal); F17.210 Nicotine dependence, cigarettes, uncomplicated
CPT/HCPCS: 71045; 80048; 80061; 82310; 82550; 82552; 83735; 83880; 84484; 85025; 85610; 85730; 92941; 93005; 93306; 93454; 99152; 99153; C1725; C1769; C1874; C1887; C1893; C9460; J1644; J2250; J3010; J7030; Q9967

== ENCOUNTER 2017-08-13 19:19 | Inpatient (IN) | payer OTHER ==
[~2017-08-13] VITALS: Ht 167.6 cm; Wt 82.7 kg
[2017-08-13] VITALS (8 sets, daily range): BP systolic 104–143; BP diastolic 59–86; PULSE 52–77; RESP 18; TEMP 98.2–98.4; O2SAT 97–99
[~2017-08-13 19:19] MED LIST changes: +ASPI81 PO; +ATOR40TA16 PO; +BRIL90TA PO; -LORTA5 PO; +METO25TA3 PO; -Z.0.NO CURRENT MEDS; -ZOFR4TAB3 SL
[2017-08-13] MEDS ORDERED: ASPIRIN 81 MG CHEW TAB PO STA (19:26)
[2017-08-13] MEDS ORDERED: HEPARIN SODIUM - IV 10,000 UNITS/10 ML VIAL IV PUSH STA (19:26)
[2017-08-13] MEDS ORDERED: SODIUM CHLOR 0.9% 1000 ML INJ 1,000 ML IV ONE (19:26)
[2017-08-13] MEDS ORDERED: NITROGLYCERIN 0.4 MG SL 25 TABS/BTL SL STA (19:26)
[2017-08-13] MEDS ORDERED: NITROGLYCERIN-D5W 50 MG/250 ML 250 ML IV PRN (19:30)
[2017-08-13] MEDS ORDERED: SODIUM CHLORIDE 0.9% FLUSH 10 ML FLUSH IVF PRN (19:30)
[2017-08-13 19:42] LABS: AUTOMATED NEUTROPHIL # 4.4 TH/MM3 (1.8-7.7); BASOPHIL # 0.1 TH/MM3 (0-0.2); BASOPHIL % 0.8 % (0.0-2.0); EOSINOPHIL # 0.1 TH/MM3 (0-0.4); EOSINOPHIL % 1.1 % (0.0-4.0); HEMATOCRIT 41.8 % (39.0-51.0); HEMOGLOBIN 14.1 GM/DL (13.0-17.0); LYMPH % 25.1 % (9.0-44.0); LYMPHOCYTE # 1.7 TH/MM3 (1.0-4.8); MEAN CELL VOLUME 96.1 FL (80.0-100.0); MEAN CORPUSCULAR HEMOGLOBIN 32.5 PG (27.0-34.0); MEAN CORPUSCULAR HGB CONC 33.8 % (32.0-36.0); MONO % 6.6 % (0.0-8.0); MONOCYTE # 0.4 TH/MM3 (0-0.9); NEUT % 66.4 % (16.0-70.0); PLATELET COUNT 289 TH/MM3 (150-450); RED BLOOD COUNT 4.35 MIL/MM3 (4.50-5.90); RED CELL DISTRIBUTION WIDTH 13.5 % (11.6-17.2); WHITE BLOOD COUNT 6.6 TH/MM3 (4.0-11.0)
[2017-08-13] MEDS ORDERED: SODIUM CHLORID 0.9% 500 ML INJ 500 ML IV ONE (19:45)
[2017-08-13] MEDS ORDERED: METOCLOPRAMIDE HCL 10 MG/2 ML VIAL IV PUSH ONE (19:45)
[2017-08-13 19:52] LABS: CALCIUM 9.1 MG/DL (8.5-10.1)
--- NOTE | 2017-08-13 19:53 | RADRPT ---
EXAM DATE: 08/13/2017 7:50 PM EDT AGE/SEX: 46 years / Male INDICATIONS: Stemi alert; chest pain. CLINICAL DATA: This is the patient's initial encounter. Patient reports that signs and symptoms have been present for 1 day and indicates a pain score of 7/10. MEDICAL/SURGICAL HISTORY: . Myocardial infarction. . Cardiac cath. COMPARISON: Chest x-ray 07/03/2017. FINDINGS: A single AP view of the chest demonstrates the lungs to be symmetrically aerated without evidence of mass, infiltrate or effusion. The cardiomediastinal contours are unremarkable. Osseous structures a re intact. CONCLUSION: Negative examination. Electronically signed by: Rusty Alexander MD 08/13/2017 7:52 PM EDT
[2017-08-13 19:54] LABS: INTERNATIONAL NORMALIZED RATIO 1.1 RATIO; PROTHROMBIN TIME - PATIENT 10.7 SEC (9.8-11.6)
[2017-08-13 19:58] LABS: MAGNESIUM 1.7 MG/DL (1.5-2.5)
[2017-08-13 20:00] LABS: TROPONIN I 0.06 NG/ML (0.02-0.05)
--- NOTE | 2017-08-13 20:03 | PD ---
HPI Chief Complaint: Chest Pain Time Seen by Provider: 19:26 Travel History International Travel<30 days: No Contact w/Intl Traveler<30days: No Traveled to known affect area: No History of Present Illness HPI 46-year-old male presents to the emergency department by private transportation the care of family for evaluation of 09/16 retrosternal chest pain with nausea. Patient denies any vomiting denies any shortness of breath denies sweats and denies any referred neck jaw back shoulder arm or abdominal pain. Patient reports this is the same pain he experienced in June when he suffered a myocardial infarction. Patient did go to cardiac catheterization at that time. Patient states he was stented and he takes a blood clot medication called Brilinta. Patient states his ruffling machine operator is Dr. Reyes. Patient took 162 of aspirin prior to arrival to the emergency department. Patient does not report diabetes history but is now on metoprolol for heart disease and high blood pressure as well as atorvastatin for high cholesterol. Patient continues to smoke cigarettes. Patient has seen Dr. Reyes with his ruffling machine operator for one outpatient visit since his hospitalization for myocardial infarction. Onset of symptoms after walking home from store. Unable to identify exacerbating or alleviating factors. PFSH Past Medical History Narrative Medical CAD, IA, stent, hypertension, dyslipidemia; tobacco use; nursing notes reviewed Heart Rhythm Problems: No Cardiac Catheterization: Yes (with stent placement) Cardiovascular Problems: Yes (mi with cath and stent) High Cholesterol: No Chest Pain: Yes Congestive Heart Failure: No Diabetes: No Diminished Hearing: No Hypertension: No Immunizations Current: Yes Myocardial Infarction: No Past Surgical History Coronary Artery Bypass Graft: No Social History Alcohol Use: No Tobacco Use: Yes (03/11 PPD) Substance Use: No Allergies-Medications (Allergen,Severity, Reaction): Coded Allergies: No Known Allergies (Verified Allergy, Unknown, 07/03/17) Reported Meds & Prescriptions Reported Meds & Active Scripts Active Tgt Aspirin (Aspirin) 81 Mg Chw 81 Mg PO DAILY 30 Days Metoprolol Tartrate 25 Mg Tab 12.5 Mg PO BID 30 Days Atorvastatin (Atorvastatin Calcium) 40 Mg Tab 40 Mg PO HS 30 Days Brilinta (Ticagrelor) 90 Mg Tab 90 Mg PO BID 30 Days Review of Systems Except as stated in HPI: all other systems reviewed are Neg General / Constitutional: No: Fever, Chills Eyes: No: Visual changes HENT: No: Headaches Cardiovascular: Positive: Chest Pain or Discomfort Respiratory: No: Shortness of Breath Gastrointestinal: Positive: Nausea, No: Abdominal Pain Genitourinary: No: Flank Pain Musculoskeletal: No: Myalgias, Arthralgias, Edema, Pain Skin: No Rash Neurologic: No: Weakness Psychiatric: No: Anxiety Hematologic/Lymphatic: No: Lymph Node Enlargement Physical Exam Narrative GENERAL: Well-developed well-nourished male in obvious discomfort no diaphoresis no shortness of breath. SKIN: Warm and dry. HEAD: Normocephalic. EYES: No scleral icterus. No injection or drainage. NECK: Supple, trachea midline. No JVD or lymphadenopathy. CARDIOVASCULAR: Regular rate and rhythm without murmurs, gallops, or rubs. RESPIRATORY: Breath sounds equal bilaterally. No accessory muscle use. GASTROINTESTINAL: Abdomen soft, non-tender, nondistended. MUSCULOSKELETAL: No cyanosis, or edema. BACK: Nontender without obvious deformity. No CVA tenderness. Data Data Last Documented VS Vital Signs Date Time Temp Pulse Resp B/P (MAP) Pulse Ox O2 Delivery O2 Flow Rate FiO2 08/13/17 20:05 52 18 129/72 (91) 97 Nasal Cannula 2.00 Orders Orders Troponin I (08/13/17 19:) Ckmb (Isoenzyme) Profile (08/13/17 19:26) Complete Blood Count With Diff (08/13/17 19:) I-Stat Profile (08/13/17:) I-Stat Creatinine (08/13/17:) Calcium (08/13/17:) Magnesium (Mg) (08/13/17:) Prothrombin Time / Inr (Pt) (08/13/17:) Act Partial Throm Time (Ptt) (08/13/17:) B-Type Natriuretic Peptide (08/13/17:) Chest, Single Ap (08/13/17:) Electrocardiogram (08/13/17:) Oxygen Administration (08/13/17:) Iv Access Insert/Monitor (08/13/17:) Oximetry (08/13/17:) Sodium Chlor 0.9% 1000 Ml Inj (Ns 1000 M (08/13/17 19:26) Sodium Chloride 0.9% Flush (Ns Flush) (08/13/17 19:30) Aspirin Chew (Aspirin Chew) (08/13/17 19:26) Nitroglycerin Sl (Nitrostat Sl) (08/13/17 19:26) Nitroglycerin-D5w 50 Mg/250 Ml (Nitrogly (08/13/17 19:30) Heparin Inj (Heparin Inj) (08/13/17 19:26) Metoclopramide Inj (Reglan Inj) (08/13/17 19:45) Sodium Chlorid 0.9% 500 Ml Inj (Ns 500 M (08/13/17 19:45) CKMB (08/13/17 19:30) CKMB% (08/13/17 19:30) Cardiac Catheterization (08/13/17 ) Heparin-Ns/Pf Inj (Heparin-Ns/Pf Inj) (08/13/17 20:07) Midazolam Inj (Versed Inj) (08/13/17 20:16) Fentanyl Inj (Fentanyl Inj) (08/13/17 20:16) Admit Order (Ed Use Only) (08/13/17 ) Graphic Designer / Telemetry LEONOR.Q8H (08/13/17 20:20) Diet Npo (08/14/17 Breakfast) Activity Bed Rest (08/13/17 20:20) Notify Dr: Other (08/13/17 20:20) Labs Laboratory Tests Test 08/13/17 19:30 White Blood Count 6.6 TH/MM3 Red Blood Count 4.35 MIL/MM3 Hemoglobin 14.1 GM/DL Bedside Hemoglobin 14.3 G/DL Hematocrit 41.8 % Bedside Hematocrit 42.0 % Mean Corpuscular Volume 96.1 FL Mean Corpuscular Hemoglobin 32.5 PG Mean Corpuscular Hemoglobin Concent 33.8 % Red Cell Distribution Width 13.5 % Platelet Count 289 TH/MM3 Mean Platelet Volume 9.0 FL Neutrophils (%) (Auto) 66.4 % Lymphocytes (%) (Auto) 25.1 % Monocytes (%) (Auto) 6.6 % Eosinophils (%) (Auto) 1.1 % Basophils (%) (Auto) 0.8 % Neutrophils # (Auto) 4.4 TH/MM3 Lymphocytes # (Auto) 1.7 TH/MM3 Monocytes # (Auto) 0.4 TH/MM3 Eosinophils # (Auto) 0.1 TH/MM3 Basophils # (Auto) 0.1 TH/MM3 CBC Comment DIFF FINAL Differential Comment Prothrombin Time 10.7 SEC Prothromb Time International Ratio 1.1 RATIO Activated Partial Thromboplast Time 24.3 SEC Bedside Sodium 140 MMOL/L Bedside Potassium 3.7 MMOL/L Bedside Chloride 102 MMOL/L Bedside Blood Urea Nitrogen 15 MG/DL Bedside Creatinine 1.0 MG/DL Bedside Glucose 202 MG/DL Calcium Level 9.1 MG/DL Magnesium Level 1.7 MG/DL Total Creatine Kinase 333 U/L Creatine Kinase MB 3.2 NG/ML Creatine Kinase MB % 1.0 % Troponin I 0.06 NG/ML B-Type Natriuretic Peptide 40 PG/ML MDM Medical Decision Making Medical Screen Exam Complete: Yes Emergency Medical Condition: Yes Medical Record Reviewed: Yes (Patient underwent cardiac catheterization with occluded obtuse marginal underwent thrombus removal and stent placement EKG post-cath showed resolution of ST segment elevation inferiorly) Interpretation(s) EKG: Normal sinus rhythm acute ST elevation with reciprocal changes noted inferiorly--- STEMI alert called CBC & BMP Diagram 08/13/17 19:30 Vital Signs Date Time Temp Pulse Resp B/P (MAP) Pulse Ox O2 Delivery O2 Flow Rate FiO2 08/13/17 19:47 52 18 143/86 (105) 98 Room Air 08/13/17 19:29 98 Nasal Cannula 2.00 08/13/17 19:25 58 18 134/76 (95) 97 CK: 333, elevated; troponin I 0.06, elevate Last Impressions Chest X-Ray 08/13/171925 Signed Impressions: CONCLUSION: Negative examination. Differential Diagnosis STEMI acute inferior IA aortic dissection aneurysm arrhythmia Narrative Course STEMI alert called at 1920 stat call went out to ruffling machine operator concrete batch plant operator; initially call went to Dr. torrez who is not covering for Dr. Reyes this was corrected to Dr. Mayes's call was placed to Dr. Griffin as a STEMI alert call at 7:332 and a cell call was placed to Dr. Griffin at 7:41 and message left also call placed to Dr Reyes, call back to DR Torrez --will start in to cover as unable to reach Dr Elias Reyes call back @ 7:42 -- identifies Dr Rodriguez concrete batch plant operator --reports Dr Rodriguez (not Dr Griffin) for their service and for STEMI. Discussed with Dr Bryant at 19:45--WBI @8:02 -- reports patient had a brief seconds in duration syncopal episode just prior to her bringing him to the emergency department. She states that his eyes were open and he was only briefly not responsive to her questions no seizure activity was noted. Per --she also reports that he told her upon arrival that he thought he was having another heart attack and felt faint before he had a seconds in duration fainting spell. Patient states that he does not think he had loss of consciousness he just felt faint. Patient denies any head pain neck pain or spine pain. On reexamination again there is no focality on exam. Scalp is soft nontender no soft tissue swelling no abrasion no laceration no palpable bony abnormality again posterior cervical spine is nontender to direct palpation and no bony step-off. Patient has symmetric movement of upper extremity lower extremity and no numbness tingling or weakness of the upper extremities or lower extremities. This information has been shared with the ruffling machine operator. Patient is going directly to agricultural labor camp manager. Critical Care Narrative Aggregate critical care time was 30 minutes. Time to perform other separately billable procedures was not included in the critical care time. My time did not include minutes spent treating any other patients simultaneously or on activities that did not directly contribute to the patient's treatment. The services I provided to this patient were to treat and/or prevent clinically significant deterioration that could result in: Arrhythmia, cardiogenic shock, I provided critical care services requiring my management, as noted below: Chart data review, documentation time, medication orders and management, vital sign assessments/reviewing monitor data, ordering and reviewing lab tests, ordering and interpreting/reviewing x-rays and diagnostic studies, care of the patient and discussion of the patient with the admitting physicians. Physician Communication Physician Communication stemi alert called and call to ruffling machine operator Diagnosis Primary Impression: STEMI (ST elevation myocardial infarction) Admitting Information Admitting Physician Requests: Admit Milka Anthony MD Aug 13, 2017 20:03
[2017-08-13] MEDS ORDERED: HEPARIN-NS/PF INJ 1,500 ML ONE (20:07)
[2017-08-13] MEDS ORDERED: MIDAZOLAM HCL 2 MG/2 ML VIAL ONE (20:16)
[2017-08-13] MEDS ORDERED: BIVALIRUDIN 250 MG VIAL ONE (20:25)
[2017-08-13] MEDS ORDERED: NITROPRUSSIDE 50 MG/D5W 250 ML IV PRN ×2 (20:30)
[2017-08-13] MEDS ORDERED: TICAGRELOR 90 MG TAB PO ONE (20:50)
[2017-08-13] MEDS: SODIUM CHLOR 0.9% 1000 ML INJ 1,000 ML IV SCH (21:08)
[2017-08-13] MEDS ORDERED: BIVALIRUDIN INJ 250 MG in SODIUM CHLORIDE 0.9% INJ 50 ML IV SCH (21:08)
--- NOTE | 2017-08-13 21:08 | CATHPROC ---
[facility] HIS Report Study Information Study Number Admission Scheduled Start Study Start [id number] Aug 13 2017 7:19PM 08/13/2017 Aug 13 2017 8:07PM [place] [facility] Cardiac Catheterization Admit Source Facility Department Emergency department [facility] - [employer] Operating Engineer Physician and Clinical Staff Initial Fred Coombs Auto Painter Chaz RN, Felipe Auto PainterGerald Ambrose,DEANDRE Other cathlab, cathlab Recorder Mira Ugalde,HUNTING SALES LEADER TECH2 Scrub Anabella Wheat,RT(R) Procedures Performed Procedure Location (Site) Vessel Name Coronary Angiograms LCA Left Coronary Coronary Angiograms RCA Right Coronary Drug Eluting Inflatio CIRC Prox CIRC L Heart Cath LV Gram-hand inj. LV LV Ventricle PTCA CIRC Prox CIRC Wire insertion Fem Art (right) Femoral Art Equipment Time Time Analysis Clerk Description Size Mfg Part Number Used/Scraped WIRE, BALANCE MIDDLEWEIGHT [id number] 20:26 [employer] 190CM Used 190CM *[id number] TRANSDUCER, TRUWAVE [id number] 20:22 LOPEZ BALTAZAR * Used W/STOCKCOCK *[id number] *[id number] [id number] *[id number] [id number] *[id number] PIGTAIL ANG. 145 INFINITI 534-652S CATHETER *[id number] *[id number] 20:22 [employer] BLANKET,WARM AIR CCL * Used *[id number] 20:22 [employer] PACK, CCL CUSTOM * Used *[id number] 20:22 [employer] PACER PEN, SKIN DUAL W/ RULER * Used *[id number] 20:29 [employer] BALLOON, 2.5 X 20MM EUPHORA 20MM Used *[id number] 20:33 [employer] STENT, 3.0 15MM SIDNEY 3.0 15MM Used *[id number] 20:31 [employer] 30 SHAHBAZ INDEFLATOR Used *[id number] 20:22 [employer] SHEATH, FR6.5 PRELUDE 11CM FR 6.5 038ACT Used *[id number] 20:22 [employer] WIRE, 3MMJ .035 180CM 180CM Used *[id number] 20:22 [employer] MANIFOLD, 4 PORT * Used *[id number] 20:22 [employer] OMNIPAQUE, 350 MG, 150ML 150ML [id number] Used Equipment Model, Serial, Lot Number and Expiration Data Description Model Number Serial Number Lot Number Expiration Date STENT, 3.0 15MM SIDNEY [id number] 04-15-2019 History: Allergies Allergy Reaction No Known Allergies History: Risk Factors Family History of Hypertension Dyslipidemia Previous MS Previous Heart Failure Premature CAD No No No No No Prior Valve Prior PCI Prior PCIDate Prior CABG Surgery No Yes 07/03/2017 No Cerebrovascular Peripheral Artery Chronic Lung On Dialysis Diabetes Disease Disease Disease No No No No No History: Symptoms/Diagnosis Selection Items Chest pain History: CV Disease Selection Items Known CAD History: Stress Tests Stress or Imaging Studies Performed No History: Other Disease Selection Items CAD History: MS/CV Data Previous Cath Date 07/03/2017 History: Other Current Smoker Method Packs a Day Years Used Pack Years Yes Cigarettes 1 30 30 Labs Hgb (g/dl) Hct (%) RBC (MIL/MM3) WBC (l/cumm) Platelets (thousands) 11.60-17.00 35.00-51.00 4.00-5.90 4.00-11.00 150.00-450.00 14.1 41.8 4.3 6.6 289 Glucose (mg/dl) BUN (mg/dl) Creatinine (mg/dl) BUN:Creatinine (1:x) 74.00-106.00 7.00-18.00 0.50-1.30 10.00-20.00 202 15 1.0 15 Na (meq/l) K (meq/l) Cl (meq/l) Ca (mg/dl) 136.00-145.00 3.50-5.10 98.00-107.00 8.50-10.10 140 3.7 102 9.1 PT (sec) PTT (sec) INR (PTT:PT) 9.80-11.60 24.30-30.10 0.90-1.10 10.7 24.3 1.1 Medication Medication Total Dose (Bolus/Oral) Medication Total Dosage/Unit 1% XYLOCAINE 20 mL AGGRASTAT BOLUS 13.5 meq/kg BRILINTA 180 mg NTG (IC) 150 mcg VERSED 1 mg Medications (Bolus/Oral) Medication Time Given Dosage/Unit Administered By Reason VERSED 08/13/2017 8:19:52 PM 1 mg Fred Rodriguez 1 mg VERSED given in lab by Fred Rodriguez in Right Antecubital via Peripheral IV. Ordered by Fred Rodriguez. 1% XYLOCAINE 08/13/2017 8:22:52 PM 20 mL Fred Rodriguez 20 mL 1% XYLOCAINE given in lab by Fred Rodriguez in Right Groin via Subcutaneous. Ordered by Fred Rodriguez. AGGRASTAT BOLUS 08/13/2017 8:27:16 PM 13.5 meq/kg Felipe Ware RN 13.5 meq/kg AGGRASTAT BOLUS given in lab by Felipe Ware RN in Right Antecubital via Peripheral IV. A mount given = 1215 meq. Ordered by Fred Rodriguez. NTG (IC) 08/13/2017 8:40:01 PM 150 mcg Fred Rodriguez 150 mcg NTG (IC) given in lab by Fred Rodriguez in Right Groin via Intra-coronary. Ordered by Fred Rodriguez. BRILINTA 08/13/2017 8:52:28 PM 180 mg Gerald Resendiz 180 mg BRILINTA given in lab by Gerald Resendiz RN via Nasal. Ordered by Fred Rodriguez. Medication (Drip) Medication Time Given Dosage/Unit Concentration/Unit Diluent (ml) Solution ANGIOMAX DRIP 08/13/2017 8:30:42 PM 1.75 mg/kg/hr 250 mg 50 NaCl .9 1.75 mg/kg/hr ANGIOMAX DRIP given in lab by eFlipe Ware RN in Right Antecubital via Peripheral IV. P ump/Drip Flow = 31.5 ml/hr using NaCl .9 with a concentration of 250 mg in 50 ml. Ordered by Fred Rodriguez. IV Solutions 08/13/2017 8:15:56 PM 0 mL (IV) 500 NaCl .9 Patient arrived on IV Solutions given by Fred Rodriguez in Right Antecubital via Peripheral IV. Pump/D rip Flow = 20 ml/hr using NaCl .9. Ordered by Fred Rodriguez. Initial Case Assessment Cardiovascular HR NIBP 54 143/85 Circulatory - Right Pulses Dorsalis Pedis Femoral 3 3 Scale (0,1,2,3,4,d) Circulatory - Left Pulses Dorsalis Pedis Femoral 3 3 Scale (0,1,2,3,4,d) Neurological State Oriented to time-place- Alert Moves all extremities person Respiration - General Respiration Rate SpO2 (%) (B/min) 14 100 Initial Case Assessment Cardiovascular HR NIBP 67 117/74 Edema Present Skin color Skin None Normal Warm Dry Circulatory - Right Pulses Dorsalis Pedis Femoral 3 3 Scale (0,1,2,3,4,d) Circulatory - Left Pulses Dorsalis Pedis Femoral 3 3 Scale (0,1,2,3,4,d) Neurological State Oriented to time-place- Alert Moves all extremities person Respiration - General Respiration Rate SpO2 (%) (B/min) 17 99 Chronological Log Time Study Chronological Log 20:05:40 Patient arrived via Bed. Vitals capture started with the following parameters, Patient=Adult, Interval=5 min, Initial Pr pyyqhw=972 mmHg, 20:15:28 Deflation Rate=5 mmHg, Cuff placed on Right Arm 20:15:46 Patient Name, D.O.B, / Armband Verified By R.N. 20:15:46 Consent signed by the physician and the patient and verified by the Steam Shovel Operating Engineer staff. 20:15:49 Patient has been NPO for More than 6Hrs. 20:15:50 Skin Breakdown- 20:15:51 Patient Warmer Placed on the Table. 20:15:51 Disposable Defibrillator Pads Placed On Patient. 20:15:52 Lexis Prominences Protected 20:15:55 A # 20 IV was noted in the Antecubital (right). Grade = 0 Patient arrived on IV Solutions given by Fred Rodriguez in Right Antecubital via Peripheral IV. Pump/Drip Flow = 20 20:15:56 ml/hr using NaCl .9. Ordered by Fred Rodriguez. 20:15:57 History and physical on the chart or being dictated. 20:16:03 HR=54 bpm, SVKV=181/85 mmhg, XuJ2=977.0 %, Resp=14 B/min, Pain=4, Siobhan=10, Espitia=2 20:19:52 1 mg VERSED given in lab by Fred Rodriguez in Right Antecubital via Peripheral IV. Ordered b Fred Aparicio. Assessment: Initial Case, HR=54 BPM, BBIJ=436/85 mmhg Right Pulses: Marco Ped=3, Femoral=3 20:20:09 Left Pulses: Marco Ped=3, Femoral=3 Neurological: State=Alert, Ox3, VADLOVINOS Respiration: Resp=14 B/min, CsW3=437 % Time Out. Correct patient, correct procedure, correct physician, labs, allergies, and equipment verified with rn cardiac cath 20::46 team present. Fire risk assesment completed (see hard stop sheet for coding). Time Out Conc urred by MD and individual staff in procedure. 20:20:51 Case Start 20:20:54 Pressure channel 1 zeroed. 20:21:04 JX=848 bpm, YYOM=535/85 mmhg, FkL5=047.0 %, Resp=12 B/min, Pain=4, Siobhan=10, Espitia=2 20:22:52 20 mL 1% XYLOCAINE given in lab by Fred Rodriguez in Right Groin via Subcutaneous. Ordered b Fred Aparicio. 20::53 Access site was Right Femoral Artery. 20:23:02 A SHEATH, FR6.5 PRELUDE 11CM FR 6.5 was advanced into the Fem Art (right) using the Modifrick d Seldinger technique. A JL 4.5 INFINITI CATHETER FR 6 was advanced over a wire. OMNIPAQUE, 350 MG, 150ML 150ML was us ed for :23:46 injections. 20:24:41 The LCA was injected and visualized at various angles. OMNIPAQUE, 350 MG, 150ML 150ML used . 20:24:58 Catheter was removed 20:25:02 Reference ECG taken 20:26:10 HR=58 bpm, ELFZ=600/77 mmhg, AoD4=126.0 %, Resp=10 B/min, Pain=4, Siobhan=10, Espitia=2 Recorded Pressure: Ao, HR=55, Condition=Condition 1 20:27:08 (Aorta) Ao 144/81/106 13.5 meq/kg AGGRASTAT BOLUS given in lab by Felipe Ware RN in Right Antecubital via Peripheral IV. Amount given = 20:27:16 1215 meq. Ordered by Fred Rodriguez. 20:27:21 A wire was inserted via Fem Art (right). 20:27:36 Interventional wire has crossed the lesion A XB 4.0 GUIDE CATHETER FR 6 was advanced over a wire. OMNIPAQUE, 350 MG, 150ML 150ML was used for :28:24 injections. A BALLOON, 2.5 X 20MM EUPHORA 20MM was inserted over WIRE, BALANCE MIDDLEWEIGHT 190CM 190CM via the 20:29:49 CIRC Prox. A BALLOON, 2.5 X 20MM EUPHORA 20MM over a WIRE, BALANCE MIDDLEWEIGHT 190CM 190CM in the CIRC Pr ox was 20:30:28 inflated using a 30 SHAHBAZ INDEFLATOR at 8 shahbaz for 16 sec. 1.75 mg/kg/hr ANGIOMAX DRIP given in lab by Felipe Ware RN in Right Antecubital via Peripheral IV. Pump/Drip Flow = 20:30:42 31.5 ml/hr using NaCl .9 with a concentration of 250 mg in 50 ml. Ordered by Fred Rodriguez. A BALLOON, 2.5 X 20MM EUPHORA 20MM over a WIRE, BALANCE MIDDLEWEIGHT 190CM 190CM in the CIRC Pr ox was 20:30:56 inflated using a 30 SHAHBAZ INDEFLATOR at 8 shahbaz for 15 sec. 20:31:09 HR=60 bpm, XNCP=839/76 mmhg, SgE0=202.0 %, Resp=12 B/min, Pain=4, Siobhan=10, Espitia=2 20:32:49 Balloon Removed. A STENT, 3.0 15MM SIDNEY 3.0 15MM was advanced through a XB 4.0 GUIDE CATHETER FR 6 over a WIRE, BALANCE 20:34:36 MIDDLEWEIGHT 190CM 190CM. A STENT, 3.0 15MM SIDNEY 3.0 15MM was deployed using a 30 SHAHBAZ INDEFLATOR at 14 atmospheres for 18 seconds in 20:34:58 the CIRC Prox. 20:36:00 Re-inflated the stent balloon in the CIRC Prox to 12 SHAHBAZ for 10 seconds. 20:36:04 HR=91 bpm, UVBU=007/82 mmhg, MnP6=892.0 %, Resp=13 B/min, Pain=4, Siobhan=10, Espitia=2 20:36:24 Re-inflated the stent balloon in the CIRC Prox to 14 SHAHBAZ for 10 seconds. 20:37:39 Delivery device removed 20:40:01 150 mcg NTG (IC) given in lab by Fred Rodriguez in Right Groin via Intra-coronary. Ordered b Fred Aparicio. 20:41:07 HR=80 bpm, XWCF=077/73 mmhg, JlN2=089 %, Resp=13 B/min, Pain=4, Siobhan=10, Espitia=2 20:43:56 Catheter was removed A PIGTAIL ANG. 145 INFINITI CATHETER FR 6 was advanced over a wire. OMNIPAQUE, 350 MG, 150ML 15 0ML was 20:43:57 used for injections. Recorded Pressure: LV, HR=52, Condition=Condition 1 20:45:59 (Left Ventricle) LV 115/6/21 20:46:04 HR=72 bpm, JZSQ=676/78 mmhg, CkW1=826.0 %, Resp=11 B/min, Pain=4, Siobhan=10, Espitia=2 20:46:25 The LV was manually injected with 10 cc's and visualized. OMNIPAQUE, 350 MG, 150ML 150ML us ed. Recorded Pressure: LV, Ao, HR=57, Condition=Condition 1 20:46:41 (Left Ventricle) LV 110/6/21, (Aorta) Ao 115/59/81 20:48:18 Catheter was removed A PIGTAIL ANG. 145 INFINITI CATHETER FR 6 was advanced over a wire. OMNIPAQUE, 350 MG, 150ML 15 0ML was 20:48:19 used for injections. 20:48:59 The RCA was injected and visualized at various angles. OMNIPAQUE, 350 MG, 150ML 150ML used . 20:49:29 Catheter was removed 20:49:50 Case End (Physician broke scrub) PCI QA completed: Pre-Jeremy - 0, Post Jeremy - 3, Type - ~TYPE~, Length - 13 mm, Morphology - ~MOR PHOLOGY~, 20:50:00 Indications - ~INDICATIONS~, Pre-Stenosis - 100% and Post Stenosis - 0%. 20:50:01 PCI QA obtained from Contact Center Consultant 20:50:40 Catheter(s) removed without difficulty 20:50:46 In the Fem Art (right) the SHEATH, FR6.5 PRELUDE 11CM FR 6.[address] by Fred Rodriguez. 20:51:05 HR=67 bpm, ZSGL=724/74 mmhg, SpO2=99.0 %, Resp=17 B/min, Pain=4, Siobhan=10, Espitia=2 20:51:19 Sterile dressing applied to site 20:51:20 No case complications noted. 20:51:39 Cine recording checked. 20:51:44 Bedside Report will be given. 20:51:46 Implantable Device card placed in patient's chart. 20:52:28 180 mg BRILINTA given in lab by Gerald Resendiz RN via Nasal. Ordered by Fred Rodriguez. Assessment: Initial Case, HR=67 BPM, KASY=064/74 mmhg, Edema=None, Color=Normal, Skin = Warm, Dry Right Pulses: Marco Ped=3, Femoral=3 20:52:41 Left Pulses: Marco Ped=3, Femoral=3 Neurological: State=Alert, Ox3, VALDOVINOS Respiration: Resp=17 B/min, SpO2=99 % 20:55:52 Vitals capture stopped. 21:02:28 A Left Heart Cath was performed. 21:02:[facility] Clinical correlaton risk stratification. End Study - Contrast Media Used In Study Contrast Total Opened (mL) Total Used (mL) Total Wasted (mL) Omnipaque 80 80 0 End Study - Maximum Contrast Load Max Contrast Load (mL) 450.0 End Study - Radiation Exposure Fluoro Time (minutes) 7.3 End Study - Patient Disposition Complications Transferred To No Telemetry Bed
[2017-08-13] MEDS ORDERED: oxyCODONE/ACETAMINOPHEN 5 MG/325 MG TAB PO PRN (21:15)
[2017-08-13] MEDS ORDERED: SODIUM CHLORIDE 0.9% FLUSH 10 ML FLUSH IV FLUSH PRN (21:15)
[2017-08-13] MEDS ORDERED: MISC INFORMATION XX ONE (21:15)
[2017-08-13] MEDS ORDERED: METOCLOPRAMIDE HCL 10 MG/2 ML VIAL IV PUSH PRN (21:15)
[2017-08-13] MEDS ORDERED: ATROPINE SULFATE 1 MG/ML VIAL IV PUSH PRN (21:15)
[2017-08-13] MEDS ORDERED: ACETAMINOPHEN 325 MG TAB PO PRN (21:15)
[2017-08-13] MEDS ORDERED: BACITRACIN OINT 0.9 GM PKT TOP ONE (21:15)
[2017-08-13] MEDS ORDERED: SODIUM CHLOR 0.9% 250 ML INJ 250 ML IV PRN (21:15)
--- NOTE | 2017-08-13 21:22 | MA ---
cc: Fred Rodriguez MD, Vance E MD Goldsmith, Alan S MD DATE: 08/13/2017 PROCEDURES PERFORMED: Left heart catheterization, left ventriculography, coronary angiography, balloon angioplasty and stenting of the proximal left circumflex coronary artery. DESCRIPTION OF PROCEDURE: The patient was brought to the cardiac catheterization lab under emergency conditions. Using 1% lidocaine for local anesthesia, a 6.5-[place] sheath was inserted in the right femoral artery. Left coronary angiography was then performed using a left 4.5 Sindy catheter. Intravenous Angiomax was started. I used a 6-[place] XB 4 guiding catheter to engage. I wired the occlusion with a BMW wire. I then predilated with a 2.5 mm balloon. I then stented proximally with a 3.0 x 15 mm [place] stent at 14 atmospheres, postdilated distally, the distal portion of the stent at 12 atmospheres and approximately 14 atmospheres. Angiography now demonstrates NASRA 3 flow with no residual stenosis. LV pressure was measured with an angled pigtail catheter, followed by left ventriculography and then a pullback. Right coronary angiography was completed using a 3DRC catheter. The sheath was sewn in place to be pulled later. He received a 180 mg Brilinta load. He was completely pain free and joking by the end of the procedure. There were no complications. BLOOD LOSS: Less than 10 mL FINDINGS: HEMODYNAMICS: Left ventricular pressure is 110/6 with an end diastolic pressure of 21. Aortic pressure is 115/59 with a mean of 81. There was no gradient during pullback of the left ventricle to the aorta. LEFT VENTRICULOGRAPHY: The diaphragmatic and inferobasal segments are akinetic. Ejection fraction appears to be 25-35%, probably closer to 35%. CORONARY ANGIOGRAPHY: Left main coronary artery is short and normal appearing. Left anterior descending artery has irregularities only. Circumflex artery has a totally occluded stent proximally. Right coronary artery is codominant and small and appears normal with maybe 20% proximal stenosis. RESULTS OF INTERVENTION Following stenting of the proximal circumflex, a 0% residual stenosis had been achieved. There was jainism of NASRA 3 flow with no loss of branches or side branches. CONCLUSIONS: 1. Impaired left ventricular function, ejection fraction 35%. 2. Elevated left ventricular end-diastolic pressure. 3. Totally thrombosed proximal circumflex stent, now successfully stented with a drug-eluting 3-0 mm stent. PLAN: The patient will be continued on aspirin, Brilinta, ideally for a minimum of 1 year and perhaps longer. MD YONI Patricio/ , 09:03 PM , 09:22 PM
--- NOTE | 2017-08-13 21:35 | MH ---
cc: Fred Rodriguez MD, Vance E MD DATE OF ADMISSION: 08/13/2017 ADMISSION DIAGNOSES: Acute inferior myocardial infarction secondary to thrombosed circumflex stent. CHIEF COMPLAINT: Chest pain. HISTORY OF PRESENT ILLNESS: This is a 46-year-old man who just had an acute inferior wall MO 07/03 and underwent stenting of the circumflex artery by Dr. Berger. Unfortunately, he ran out of his Brilinta and developed acute onset of chest pain. He came into the ER promptly. STEMI alert was called and he was brought quickly to the laborer hoisting. The patient has continued to smoke since discharge. I heard mention that he had fallen, but the patient denied hitting his head and I could not see any evidence of head trauma. He was wide awake and alert. MEDICATIONS: Supposed to include: 1. Aspirin 81 mg daily. 2. Metoprolol 12.5 b.i.d. 3. Atorvastatin 40 mg at bedtime. 4. Brilinta 90 mg p.o. b.i.d. SOCIAL HISTORY: The patient has a remote history of cocaine use, based on a tox screen from 01/08/2008. Tox screen that was also positive for THC. ALLERGIES: NONE KNOWN. REVIEW OF SYSTEMS: Negative. Denies any bleeding. FAMILY HISTORY: Unknown at this time. PHYSICAL EXAMINATION: GENERAL: Well-developed, well-nourished male, in moderate distress. VITAL SIGNS: Charted. HEENT: Atraumatic, normocephalic. I could not palpate any bump or bleeding on the scalp. NECK: Showed no JVD. No bruits. CHEST: Clear to auscultation. CARDIOVASCULAR: S1, S2, regular rate and rhythm, maybe a soft S3. ABDOMEN: Soft, nontender. EXTREMITIES: No clubbing, cyanosis or edema. Pulses are intact. CARDIOLOGY STUDIES: EKG shows sinus rhythm with acute inferior STEMI. PLAN: The patient was brought quickly to the laborer hoisting and reperfusion established with repeat balloon angioplasty and stenting. He had complete resolution of chest pain. The patient swears now that he is going to quit smoking and be compliant with his medication. We will introduce angiotensin converting enzyme inhibitor and beta miguel therapy gradually as hemodynamics tolerate. Anticipated hospital stay is at least 2 days. MD YONI Patricio/ , 09:08 PM , 09:34 PM
[2017-08-14] VITALS (24 sets, daily range): BP systolic 99–114; BP diastolic 62–68; PULSE 55–82; RESP 18–20; TEMP 98.4–98.7; O2SAT 98–100
[2017-08-14] MEDS: SODIUM CHLOR 0.9% 1000 ML INJ 1,000 ML IV SCH ×2 (00:56)
[2017-08-14 04:39] LABS: AUTOMATED NEUTROPHIL # 5.5 TH/MM3 (1.8-7.7); BASOPHIL # 0.1 TH/MM3 (0-0.2); BASOPHIL % 0.6 % (0.0-2.0); EOSINOPHIL # 0.1 TH/MM3 (0-0.4); EOSINOPHIL % 1.5 % (0.0-4.0); HEMATOCRIT 35.4 % (39.0-51.0); HEMOGLOBIN 11.8 GM/DL (13.0-17.0); LYMPH % 27.6 % (9.0-44.0); LYMPHOCYTE # 2.4 TH/MM3 (1.0-4.8); MEAN CELL VOLUME 96.1 FL (80.0-100.0); MEAN CORPUSCULAR HEMOGLOBIN 32.1 PG (27.0-34.0); MEAN CORPUSCULAR HGB CONC 33.4 % (32.0-36.0); MEAN PLATELET VOLUME 8.7 FL (7.0-11.0); MONO % 6.4 % (0.0-8.0); MONOCYTE # 0.6 TH/MM3 (0-0.9); NEUT % 63.9 % (16.0-70.0); PLATELET COUNT 237 TH/MM3 (150-450); RED BLOOD COUNT 3.68 MIL/MM3 (4.50-5.90); RED CELL DISTRIBUTION WIDTH 13.4 % (11.6-17.2); WHITE BLOOD COUNT 8.6 TH/MM3 (4.0-11.0)
[2017-08-14 05:19] LABS: BICARBONATE 23.2 MEQ/L (21.0-32.0); CALCIUM 8.3 MG/DL (8.5-10.1); CREATININE 0.71 MG/DL (0.60-1.30)
[2017-08-14] MEDS: LISINOPRIL 5 MG TAB PO SCH (08:25)
[2017-08-14] MEDS: METOPROLOL TARTRATE 25 MG TAB PO SCH ×2 (08:26→22:04)
[2017-08-14] MEDS: TICAGRELOR 90 MG TAB PO SCH ×2 (08:26→22:04)
[2017-08-14] MEDS: SODIUM CHLORIDE 0.9% FLUSH 10 ML FLUSH IV FLUSH SCH ×2 (08:26→21:00)
[2017-08-14] MEDS: ASPIRIN 81 MG CHEW TAB PO SCH (08:26)
[2017-08-14] MEDS ORDERED: IOHEXOL 350 MG/ML 100 ML BTL (for Cath Lab) OTHER ONE (08:33)
--- NOTE | 2017-08-14 09:51 | PD.CARD.PN ---
Subjective Subjective Remarks no complaints Objective Medications Current Medications Medications (Trade) Dose Ordered Sig/Kris Route Start Time Stop Time Status Last Admin Sodium Nitroprusside 50 mg/Dextrose 250 ml @ 3 mls/hr TITRATE PRN IV 08/13/17 20:30 (NS Flush) 2 ml UNSCH PRN IV FLUSH 08/13/17 21:15 (NS Flush) 2 ml BID IV FLUSH 08/14/17 09:00 08/14/17 08:26 (Tylenol) 325 mg Q4H PRN PO 08/13/17 21:15 (Percocet 5-325 Mg) 1 tab Q4H PRN PO 08/13/17 21:15 (Aspirin Chew) 81 mg DAILY PO 08/14/17 09:00 08/14/17 08:26 (Brilinta) 90 mg BID PO 08/14/17 09:00 08/14/17 08:26 (Atropine Inj) 0.5 mg UNSCH PRN IV PUSH 08/13/17 21:15 Sodium Chloride 250 ml @ 500 mls/hr ONCE PRN IV 08/13/17 21:15 08/14/17 21:14 (Reglan Inj) 10 mg Q4H PRN IV PUSH 08/13/17 21:15 (Lopressor) 12.5 mg BID PO 08/14/17 09:00 08/14/17 08:26 (Prinivil) 5 mg DAILY PO 08/14/17 09:00 08/14/17 08:25 (Lipitor) 40 mg HS PO 08/14/17 21:00 (KCl) 20 meq ONCE ONCE PO 08/14/17 10:00 08/14/17 10:01 Vital Signs / I&O Vital Signs Date Time Temp Pulse Resp B/P (MAP) Pulse Ox O2 Delivery O2 Flow Rate FiO2 08/14/17 09:37 62 08/14/17 09:37 98.5 72 18 105/64 (78) 100 08/14/17 09:37 100 Room Air 08/14/17 06:00 60 08/14/17 05:00 60 08/14/17 04:00 56 08/14/17 03:00 61 08/14/17 03:00 98.4 77 18 105/67 (80) 98 08/14/17 02:00 60 08/14/17 01:00 68 08/14/17 00:00 56 08/13/17 23:11 98.4 61 18 109/59 (76) 99 08/13/17 23:00 77 08/13/17 22:34 98.2 53 18 104/62 (76) 99 08/13/17 22:34 100 Room Air 08/13/17 22:00 66 08/13/17 21:00 65 08/13/17 20:05 52 18 129/72 (91) 97 Nasal Cannula 2.00 08/13/17 19:47 52 18 143/86 (105) 98 Room Air 08/13/17 19:29 98 Nasal Cannula 2.00 08/13/17 19:25 58 18 134/76 (95) 97 I/O 08/13/17 08/13/17 08/13/17 08/14/17 08/14/17 08/14/17 07:00 15:00 23:00 07:00 15:00 23:00 Intake Total 700 ml 1260 ml Output Total 300 ml Balance 700 ml 960 ml Intake Oral 960 ml IV Total 700 ml 300 ml Output Urine Total 300 ml # Voids 1 Physical Exam Alert Tele NSVT Chest clear CV S1S2 RRR Right groin OK No edema Laboratory Laboratory Tests Test 08/13/17 19:30 08/14/17 04:30 White Blood Count 6.6 TH/MM3 8.6 TH/MM3 Red Blood Count 4.35 MIL/MM3 3.68 MIL/MM3 Hemoglobin 14.1 GM/DL 11.8 GM/DL Bedside Hemoglobin 14.3 G/DL Hematocrit 41.8 % 35.4 % Bedside Hematocrit 42.0 % Mean Corpuscular Volume 96.1 FL 96.1 FL Mean Corpuscular Hemoglobin 32.5 PG 32.1 PG Mean Corpuscular Hemoglobin Concent 33.8 % 33.4 % Red Cell Distribution Width 13.5 % 13.4 % Platelet Count 289 TH/MM3 237 TH/MM3 Mean Platelet Volume 9.0 FL 8.7 FL Neutrophils (%) (Auto) 66.4 % 63.9 % Lymphocytes (%) (Auto) 25.1 % 27.6 % Monocytes (%) (Auto) 6.6 % 6.4 % Eosinophils (%) (Auto) 1.1 % 1.5 % Basophils (%) (Auto) 0.8 % 0.6 % Neutrophils # (Auto) 4.4 TH/MM3 5.5 TH/MM3 Lymphocytes # (Auto) 1.7 TH/MM3 2.4 TH/MM3 Monocytes # (Auto) 0.4 TH/MM3 0.6 TH/MM3 Eosinophils # (Auto) 0.1 TH/MM3 0.1 TH/MM3 Basophils # (Auto) 0.1 TH/MM3 0.1 TH/MM3 CBC Comment DIFF FINAL DIFF FINAL Differential Comment Prothrombin Time 10.7 SEC Prothromb Time International Ratio 1.1 RATIO Activated Partial Thromboplast Time 24.3 SEC Bedside Sodium 140 MMOL/L Bedside Potassium 3.7 MMOL/L Bedside Chloride 102 MMOL/L Bedside Blood Urea Nitrogen 15 MG/DL Bedside Creatinine 1.0 MG/DL Bedside Glucose 202 MG/DL Calcium Level 9.1 MG/DL 8.3 MG/DL Magnesium Level 1.7 MG/DL Total Creatine Kinase 333 U/L 1290 U/L Creatine Kinase MB 3.2 NG/ML 166.0 NG/ML Creatine Kinase MB % 1.0 % 12.9 % Troponin I 0.06 NG/ML B-Type Natriuretic Peptide 40 PG/ML Blood Urea Nitrogen 13 MG/DL Creatinine 0.71 MG/DL Random Glucose 92 MG/DL Sodium Level 142 MEQ/L Potassium Level 3.4 MEQ/L Chloride Level 108 MEQ/L Carbon Dioxide Level 23.2 MEQ/L Anion Gap 11 MEQ/L Estimat Glomerular Filtration Rate 145 ML/MIN Imaging Last 24 hours Impressions Chest X-Ray 08/13/171925 Signed Impressions: CONCLUSION: Negative examination. Assessment and Plan Problem List: (1) Stented coronary artery ICD Codes: Z95.5 - Presence of coronary angioplasty implant and graft (2) Tobacco abuse ICD Codes: Z72.0 - Tobacco use Plan: counseled (3) Noncompliance w/medication treatment due to intermit use of medication ICD Codes: Z91.14 - Patient's other noncompliance with medication regimen (4) STEMI (ST elevation myocardial infarction) ICD Codes: I21.3 - ST elevation (STEMI) myocardial infarction of unspecified site Status: Acute Plan: secondary to stent thrombosis Fred Rodriguez MD Aug 14, 2017 09:51
[2017-08-14] MEDS ORDERED: POTASSIUM CHLORIDE 20 MEQ CONTROLLED RELEASE TAB PO ONE (10:00)
--- NOTE | 2017-08-14 17:59 | HHI.PR ---
Subjective Remarks Follow up for acute inferior myocardial infarction secondary to in-stent thrombosis. Patient underwent emergent cath and PCI/stent. Patient is currently doing well. Denies any chest pain, shortness of breath, fever, chills. Objective Vitals Vital Signs Date Time Temp Pulse Resp B/P (MAP) Pulse Ox O2 Delivery O2 Flow Rate FiO2 08/14/17 17:12 77 08/14/17 16:00 58 08/14/17 15:07 98.4 70 18 110/64 (79) 100 08/14/17 15:07 100 Room Air 08/14/17 15:07 63 08/14/17 14:01 59 08/14/17 13:07 55 08/14/17 12:01 62 08/14/17 11:32 98 Room Air 08/14/17 11:32 65 08/14/17 11:32 98.7 67 18 107/66 (80) 98 08/14/17 10:00 60 08/14/17 09:37 62 08/14/17 09:37 98.5 72 18 105/64 (78) 100 08/14/17 09:37 100 Room Air 08/14/17 06:00 60 08/14/17 05:00 60 08/14/17 04:00 56 08/14/17 03:00 61 08/14/17 03:00 98.4 77 18 105/67 (80) 98 08/14/17 02:00 60 08/14/17 01:00 68 08/14/17 00:00 56 08/13/17 23:11 98.4 61 18 109/59 (76) 99 08/13/17 23:00 77 08/13/17 22:34 98.2 53 18 104/62 (76) 99 08/13/17 22:34 100 Room Air 08/13/17 22:00 66 08/13/17 21:00 65 08/13/17 20:05 52 18 129/72 (91) 97 Nasal Cannula 2.00 08/13/17 19:47 52 18 143/86 (105) 98 Room Air 08/13/17 19:29 98 Nasal Cannula 2.00 08/13/17 19:25 58 18 134/76 (95) 97 I/O 08/13/17 08/13/17 08/13/17 08/14/17 08/14/17 6/7/18 07:00 15:00 23:00 07:00 15:00 23:00 Intake Total 700 ml 1260 ml 480 ml Output Total 300 ml 800 ml Balance 700 ml 960 ml -320 ml Intake Oral 960 ml 480 ml IV Total 700 ml 300 ml Output Urine Total 300 ml 800 ml # Voids 1 # Bowel Movements 0 Result Diagram: 08/14/17 0430 08/14/17 0430 Imaging Last Impressions Chest X-Ray 08/13/17 192 Signed Impressions: CONCLUSION: Negative examination. Objective Remarks GENERAL: Alert, Oriented x 3, NAD. SKIN: Warm and dry. HEAD: Normocephalic. EYES: No scleral icterus. No injection or drainage. NECK: Supple, trachea midline. No JVD or lymphadenopathy. CARDIOVASCULAR: Regular rate and rhythm without murmurs, gallops, or rubs. RESPIRATORY: Breath sounds equal bilaterally. No accessory muscle use. GASTROINTESTINAL: Abdomen soft, non-tender, nondistended. MUSCULOSKELETAL: No cyanosis, or edema. BACK: Nontender without obvious deformity. No CVA tenderness. Procedures Cardiac cath 08/13/2017. 1. Impaired left ventricular function, ejection fraction 35%. 2. Elevated left ventricular end-diastolic pressure. 3. Totally thrombosed proximal circumflex stent, now successfully stented with a drug-eluting 3-0 mm stent. A/P Problem List: (1) STEMI (ST elevation myocardial infarction) ICD Code: I21.3 - ST elevation (STEMI) myocardial infarction of unspecified site Status: Acute (2) Ischemic cardiomyopathy ICD Code: I25.5 - Ischemic cardiomyopathy (3) Tobacco abuse ICD Code: Z72.0 - Tobacco use Assessment and Plan 46-year-old male presents to the emergency department by private transportation the [facility] for evaluation of 09/16 retrosternal chest pain with nausea. Work up indicated STEMI. Patient recently underwent PCI/Stent in June 2017. However, he ran out of Ticagrelor and thus stopped taking medication. Acute inferior STEMI - likely due to in-stent thrombosis Ischemic cardiomyopathy - Continue Ticagrelor, Low dose Aspirin, Statin, TRISTON inhibitor, beta miguel. Tobacco abuse - patient has been counselled. Full code. Ambulation. Discharge: Likely discharge in the AM on 08/15/2017. Thony Corey DO Aug 14, 2017 17:59
--- NOTE | 2017-08-14 20:38 | EKG ---
Date Performed: 08/13/2017 Time Performed: 19:18:46 PTAGE: 46 years EKG: Normal Sinus Rythm Acute Inferior ST asegment elevation myocardial infarction with reciproc al change Since PREVIOUS TRACING ,the criteria for the acute inferiror ST segment myocardial infarction are new. Clinical correlation is recommended PREVIOUS TRACIN07/04/2017 04.56 DOCTOR: Heather Andrade Interpretating Date/Time 08/14/2017 20:36:52
--- NOTE | 2017-08-14 20:40 | EKG ---
Date Performed: 08/14/2017 Time Performed: 06:10:06 PTAGE: 46 years EKG: Sinus bradycardia Inferior infarct - age undetermined Since previous tracing,ST segment micaela vation and transmural injury have resolved suggesting possible reperfusion. Patient has persistent cr iteria for an inferior wall infarct of an indeterminate age. Abnormal ECG PREVIOUS TRACING : 08/13/2017 19.18 DOCTOR: Heather Andrade Interpretating Date/Time 08/14/2017 20:38:35
[2017-08-14] MEDS ORDERED: ATORVASTATIN 10 MG TAB PO SCH (21:00)
[2017-08-15] VITALS (13 sets, daily range): BP systolic 99–109; BP diastolic 57–58; PULSE 51–66; RESP 16–18; TEMP 98.2–98.6; O2SAT 100
[2017-08-15] MEDS: SODIUM CHLORIDE 0.9% FLUSH 10 ML FLUSH IV FLUSH SCH (09:00)
[2017-08-15] MEDS: LISINOPRIL 5 MG TAB PO SCH (09:15)
[2017-08-15] MEDS: ASPIRIN 81 MG CHEW TAB PO SCH (09:15)
[2017-08-15] MEDS: METOPROLOL TARTRATE 25 MG TAB PO SCH (09:15)
[2017-08-15] MEDS: TICAGRELOR 90 MG TAB PO SCH (09:15)
[2017-08-15] MEDS ORDERED: METO25TA3 PO (11:11)
[2017-08-15] MEDS ORDERED: ASPI81 PO (11:11)
[2017-08-15] MEDS ORDERED: LISI-519 PO (11:11)
[2017-08-15] MEDS ORDERED: BRIL90TA PO (11:11)
[2017-08-15] MEDS ORDERED: ATOR40TA16 PO (11:11)
--- NOTE | 2017-08-15 12:22 | HHI.DS ---
Discharge Summary Admission Date Aug 13, 2017 at 8:22 pm Discharge Date: Aug 15, 2017 Admitting Diagnosis stemi (1) STEMI (ST elevation myocardial infarction) ICD Code: I21.3 - ST elevation (STEMI) myocardial infarction of unspecified site Status: Acute (2) Ischemic cardiomyopathy ICD Code: I25.5 - Ischemic cardiomyopathy (3) Tobacco abuse ICD Code: Z72.0 - Tobacco use Procedures Cardiac cath 08/13/2017. 1. Impaired left ventricular function, ejection fraction 35%. 2. Elevated left ventricular end-diastolic pressure. 3. Totally thrombosed proximal circumflex stent, now successfully stented with a drug-eluting 3-0 mm stent. Brief History - From Admission This is a 46-year-old man who just had an acute inferior wall ND 07/03 and underwent stenting of the circumflex artery by Dr. Berger. Unfortunately, he ran out of his Brilinta and developed acute onset of chest pain. He came into the ER promptly. STEMI alert was called and he was brought quickly to the senior label specialist. The patient has continued to smoke since discharge. I heard mention that he had fallen, but the patient denied hitting his head and I could not see any evidence of head trauma. He was wide awake and alert. CBC/BMP: 08/14/17 0430 08/14/17 0430 Significant Findings Laboratory Tests Test 08/13/17 19:30 08/14/17 04:30 Red Blood Count 4.35 MIL/MM3 (4.50-5.90) 3.68 MIL/MM3 (4.50-5.90) Bedside Glucose 202 MG/DL (68-110) Total Creatine Kinase 333 U/L (39-308) 1290 U/L (39-308) Troponin I 0.06 NG/ML (0.02-0.05) Hemoglobin 11.8 GM/DL (13.0-17.0) Hematocrit 35.4 % (39.0-51.0) Calcium Level 8.3 MG/DL (8.5-10.1) Potassium Level 3.4 MEQ/L (3.5-5.1) Chloride Level 108 MEQ/L (98-107) Creatine Kinase MB 166.0 NG/ML (0.5-3.6) Creatine Kinase MB % 12.9 % (0.0-4.0) Imaging Last Impressions Chest X-Ray 08/13/171925 Signed Impressions: CONCLUSION: Negative examination. PE at Discharge GENERAL: Alert, Oriented x 3, NAD. SKIN: Warm and dry. HEAD: Normocephalic. EYES: No scleral icterus. No injection or drainage. NECK: Supple, trachea midline. No JVD or lymphadenopathy. CARDIOVASCULAR: Regular rate and rhythm without murmurs, gallops, or rubs. RESPIRATORY: Breath sounds equal bilaterally. No accessory muscle use. GASTROINTESTINAL: Abdomen soft, non-tender, nondistended. MUSCULOSKELETAL: No cyanosis, or edema. BACK: Nontender without obvious deformity. No CVA tenderness. Pt update on day of discharge Mr. Ashton is currently doing well. No chest pain, shortness of breath, fever or chills. He is ambulating well in his room. Hospital Course Mr. Ashton is a 46-year-old -[place] male with a history of acute inferior wall ND on 07/03/2017 status post stenting of the circumflex artery who presented to the emergency department on 08/13/2017 with acute chest pain. ED workup indicated STEMI and patient was subsequently taken to [facility] by cardiology emergently. Further history reveals patient ran out of Brilinta and this likely caused in-stent thrombosis. A drug-eluting stent was placed by Dr. Rodriguez. We went over all his medications and emphasized the importance of taking his medications. He was prescribed all his essential medications with 1 year refills and sent to his pharmacy. All questions answered. Patient verbalized understanding especially with regards to aspirin and Brilinta. Pt Condition on Discharge: Good Discharge Disposition: Discharge Home Discharge Time: <= 30 minutes Discharge Instructions DIET: Follow Instructions for: Heart Healthy Diet Activities you can perform: Regular-No Restrictions Follow up Referrals: Cardiology - 1 Week PCP Follow-up - 1 Week New Medications: Lisinopril (Lisinopril) 5 Mg Tab 5 MG PO DAILY for Blood Pressure Management, #30 TAB 11 Refills Continued Medications: Aspirin (Tgt Aspirin) 81 Mg Chw 81 MG PO DAILY for Blood Clot Prevention for 30 Days, #90 EA 3 Refills (This prescription has been renewed) Atorvastatin (Atorvastatin) 40 Mg Tab 40 MG PO HS for Cholesterol Management for 30 Days, #90 TAB 3 Refills (This prescription has been renewed) Metoprolol Tartrate (Metoprolol Tartrate) 25 Mg Tab 12.5 MG PO BID for Blood Pressure Management for 30 Days, #60 TAB 11 Refills ( This prescription has been renewed) Ticagrelor (Brilinta) 90 Mg Tab 90 MG PO BID for Blood Clot Prevention for 30 Days, #60 TAB 11 Refills (This prescription has been renewed) Thony Corey DO Aug 15, 2017 12:22 pm
== END 2017-08-15 12:12 | disposition home or self-care (01) | DRG 247 ==
LOC: NEPC 19:19 → NEDA 20:22 → HCIS 21:40
PROVIDERS: ADMIT Hospitalist; ATTEND Hospitalist
PROC: 027034Z Dilation of Coronary Artery, One Artery with Drug-eluting Intraluminal Device, Percutaneous Approach (ICD-10-PCS; principal; 2017-08-13)
PROC: 4A023N7 Measurement of Cardiac Sampling and Pressure, Left Heart, Percutaneous Approach (ICD-10-PCS; 2017-08-13)
PROC: B2151ZZ Fluoroscopy of Left Heart using Low Osmolar Contrast (ICD-10-PCS; 2017-08-13)
PROC: B2111ZZ Fluoroscopy of Multiple Coronary Arteries using Low Osmolar Contrast (ICD-10-PCS; 2017-08-13)
DX: I21.19 ST elevation (STEMI) myocardial infarction involving other coronary artery of inferior wall (principal); I10 Essential (primary) hypertension; I25.10 Atherosclerotic heart disease of native coronary artery without angina pectoris; R55 Syncope and collapse; I25.5 Ischemic cardiomyopathy; E78.00 Pure hypercholesterolemia, unspecified; E78.5 Hyperlipidemia, unspecified; F17.210 Nicotine dependence, cigarettes, uncomplicated; Z79.82 Long term (current) use of aspirin; Z91.14 Patient's other noncompliance with medication regimen; I25.2 Old myocardial infarction
CPT/HCPCS: 71045; 80048; 82310; 82550; 82552; 83735; 83880; 84484; 85025; 85610; 85730; 92941; 93005; 93458; 96361; 96374; 99152; 99153; C1725; C1769; C1874; C1887; C1893; J0583; J1644; J2250; J3010; J7030; Q9967

== ENCOUNTER 2017-11-13 13:13 | Inpatient (IN) ==
[2017-11-13] MEDS ORDERED: Morphine Inj 4 MG/ML Vial IV.PUSH ONE (13:31)
--- NOTE | 2017-11-13 13:36 | ED ---
HPI General Chief complaint: Chest Pain Stated complaint: Chest Complaint Time Seen by Provider: 11/13/17 13:22 History of Present Illness HPI narrative: This is a 47-year-old male with history of coronary disease, ischemic cardiomyopathy, tobacco use, presents for evaluation of chest pain. He reports that symptoms started this morning at 12pm approximately 30 minutes after walking to a store. He describes it as a sharp left-sided chest and shoulder pain which is constant but worse when he moves suddenly. He reports that he had a similar pain yesterday when he was at work. 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 He reports that today he had some nausea and 2 episodes of vomiting when the pain developed. He reports a slight cough as well. He denies shortness of breath, abdominal pain, diaphoresis, lightheadedness or dizziness. Symptoms are moderate. He reports that he is compliant with his medication regimen including baby aspirin, Brilinta, metoprolol, atorvastatin, lisinopril. No other complaints. Related Data Home Medications Medication Instructions Recorded Confirmed aspirin 81 mg PO DAILY 11/13/17 11/13/17 atorvastatin 40 mg PO DAILY 11/13/17 11/13/17 lisinopril 5 mg PO DAILY 11/13/17 11/13/17 metoprolol tartrate 25 mg PO BID 11/13/17 11/13/17 ticagrelor [Brilinta] 90 mg PO BID 11/13/17 11/13/17 Allergies Allergy/AdvReac Type Severity Reaction Status Date / Time No Known Allergies Allergy Unknown NONE Uncoded 11/13/17 13:37 Review of Systems ROS: all other systems reviewed are negative [facility] Medical History Medical History High cholesterol (Acute) Hypertension (Acute) Myocardial infarction (Acute) Surgical History Surgical History Stented coronary artery (Acute) Social History Social History Substance History: Past History Second Hand Smoke Exposure: Yes Smoking Status: Current some day smoker Tobacco Type: Cigarettes and Cigars How Often Do You Have a Drink Containing Alcohol: Never Recent Travel in [facility] within the Last 8 Weeks: No Recent Out of Country Travel within the Last 8 Weeks: No Exam Narrative Exam Narrative: GENERAL: This is a well-developed well-nourished male in no acute distress SKIN: Warm and dry. HEAD: Atraumatic. Normocephalic. EYES: Pupils equal and round. No scleral icterus. No injection or drainage. ENT: No nasal bleeding or discharge. Mucous membranes pink and moist. NECK: Trachea midline. No JVD. CARDIOVASCULAR: Regular rate and rhythm. No murmur appreciated. RESPIRATORY: No accessory muscle use. Clear to auscultation. Breath sounds equal bilaterally. GASTROINTESTINAL: Abdomen soft, non-tender, nondistended. Hepatic and splenic margins not palpable. MUSCULOSKELETAL: No obvious deformities. No clubbing. No cyanosis. No edema. NEUROLOGICAL: Awake and alert. No obvious cranial nerve deficits. Motor grossly within normal limits. Normal speech. PSYCHIATRIC: Appropriate mood and affect; insight and judgment normal. Course Initial Documented Vital Signs Temperature 98.5 F 11/13/17 13:19 Pulse Rate 73 11/13/17 13:19 Respiratory Rate 20 11/13/17 13:19 Blood Pressure 146/76 H 11/13/17 13:19 Pulse Oximetry 99 11/13/17 13:19 Last Documented Vital Signs Temperature 98.5 F 11/13/17 13:19 Pulse Rate 54 L 11/13/17 15:00 Respiratory Rate 16 11/13/17 15:00 Blood Pressure 99/53 L 11/13/17 15:00 Pulse Oximetry 97 11/13/17 15:00 Medical Decision Making ANTHONY Attestation ANTHONY supervised visit: Yes Attestation: I, Dr. Liz, have reviewed the advance practice practitioner's documentation and am in agreement, met with the patient face to face, made the diagnosis, and the medical decision making was done by me. *My assessment and Findings: Patient seen and examined by me in addition to Mohsen Schneider PA-C. Patient has left shoulder pain radiating down to his left mid axillary line on the chest wall. Patient has reproducible left-sided chest pain. It was relieved by nitroglycerin and brought on by exertion. Has had a history 3 STEMI's this year. Fairly atypical chest pain but certainly with risk factors. I think is reasonable discussed the patient with Dr. Reyes and disposition could be made over the phone with Dr. Reyes a reasonable follow-up could be arranged. If not chest pain center observation is being considered MDM Narrative Medical decision making narrative: The patient was placed on ECG monitoring pulse oximetry. A 12-lead EKG was obtained revealing sinus rhythm, rate 69, T- wave inversions noted in leads III and aVF, Q waves noted in 2-3 and aVF. Lab work, chest x-ray ordered. The patient took a baby aspirin this morning, additional 243 mg of aspirin has been ordered as well as sublingual nitroglycerin and morphine. The patient was reexamined. He reports that his pain resolved after one sublingual nitroglycerin and 4 mg of morphine. His lab work is been reviewed. His troponin is 0.06. Total CK is 493. These were drawn 1.5 hours after the patient's pain initially started. I discussed the case with the on-call roof slater Dr. Griffin who would like the patient admitted to medicine, Cardiology consultation, heparin, potentially cardiac catheterization tomorrow morning. Discussed with the patient who is agreeable. Heparin has been ordered. D/w Dr. Gonzalez who is agreeable with admission. Medical Screen Exam Complete: Yes Emergency Medical Condition: Yes Differential Diagnosis Differential Diagnosis: Acute coronary syndrome, angina, costochondritis, pleurisy, pericarditis, myocarditis, spontaneous pneumothorax Lab Data Result diagrams: 11/13/17 13:45 11/13/17 13:45 Lab Results 11/13/17 11/13/17 11/13/17 Range/Units 13:45 13:45 13:45 WBC 6.4 (4.0-11.0) th/mm3 RBC 3.96 L (4.50-5.90) mil/mm3 Hgb 13.1 (13.0-17.0) gm/dL Hct 39.2 (39.0-51.0) % MCV 99.1 (80.0-100.0) fL MCH 33.1 (27.0-34.0) pg MCHC 33.4 (32.0-36.0) % RDW 13.6 (11.6-17.2) % Plt Count 225 (150-450) th/mm3 MPV 9.5 (7.0-11.0) fL Neut % (Auto) 62.6 (16.0-70.0) % Lymph % (Auto) 28.2 (9.0-44.0) % [place] % (Auto) 7.0 (0.0-8.0) % Eos % (Auto) 1.6 (0.0-4.0) % Baso % (Auto) 0.6 (0.0-2.0) % Neut # (Auto) 4.0 (1.8-7.7) th/mm3 Lymph # (Auto) 1.8 (1.0-4.8) th/mm3 [place] # (Auto) 0.4 (0.0-0.9) th/mm3 Eos # (Auto) 0.1 (0.0-0.4) th/mm3 Baso # (Auto) 0.0 (0.0-0.2) th/mm3 WBC Differential . Differential Comment Auto diff final PT 10.5 (9.8-11.6) sec INR 1.0 Ratio APTT 25.0 (24.3-30.1) sec Sodium 139 (136-145) meq/L Potassium 3.8 (3.5-5.1) meq/L Chloride 105 (98-107) meq/L Carbon Dioxide 26.7 (21.0-32.0) meq/L Anion Gap 7 (5-15) meq/L BUN 17 (7-18) mg/dL Creatinine 1.11 (0.60-1.30) mg/dL Estimated GFR 86 L (>89) mL/min Random Glucose 157 H (74-106) mg/dL Calcium 8.7 (8.5-10.1) mg/dL Total Bilirubin 0.6 (0.2-1.0) mg/dL AST 28 (15-37) U/L ALT 44 (12-78) U/L Alkaline Phosphatase 153 H (45-117) U/L Total Creatine Kinase 493 H (39-308) U/L CK-MB (CK-2) 3.6 (0.5-3.6) ng/mL CK-MB (CK-2) % 0.7 (0.0-4.0) % Troponin I 0.06 H (0.02-0.05) ng/mL Total Protein 7.5 (6.4-8.2) g/dL Albumin 3.6 (3.4-5.0) g/dL Imaging Data Radiologist's impression: Chest X-Ray 11/13/17 13:31 CONCLUSION: Negative examination. Discharge Plan Discharge Disposition Patient Disposition: 30 Still Patient Discharge Condition Condition: Stable Discharge Details Diagnosis: Chest pain, Elevated troponin Physicians Team ED Provider: Yung Liz ED Midlevel Provider: Mohsen Schneider Primary Care Provider: Primary Care Meryl Alanis Rxs /Orders / Referrals /Forms Prescriptions: No Action atorvastatin 40 mg Tablet 40 mg PO DAILY RF: 0 aspirin 81 mg Tablet,Delayed Release (Dr/Ec) 81 mg PO DAILY RF: 0 lisinopril 5 mg Tablet 5 mg PO DAILY RF: 0 metoprolol tartrate 25 mg Tablet 25 mg PO BID RF: 0 ticagrelor [Brilinta] 90 mg Tablet 90 mg PO BID RF: 0 Discharge Instructions Patient Printed Instructions: Chest Pain (ED) Status ED Status: With Doctor
[2017-11-13 14:17] LABS: Baso % (Auto) 0.6 % (0.0-2.0); Eos # (Auto) 0.1 th/mm3 (0.0-0.4); Eos % (Auto) 1.6 % (0.0-4.0); Hematocrit 39.2 % (39.0-51.0); Hemoglobin 13.1 gm/dL (13.0-17.0); Lymph # (Auto) 1.8 th/mm3 (1.0-4.8); Lymph % (Auto) 28.2 % (9.0-44.0); Mean Corpuscular HGB Conc 33.4 % (32.0-36.0); Mean Corpuscular Hemoglobin 33.1 pg (27.0-34.0); Mean Corpuscular Volume 99.1 fL (80.0-100.0); Mean Platelet Volume 9.5 fL (7.0-11.0); Mono # (Auto) 0.4 th/mm3 (0.0-0.9); Neut % (Auto) 62.6 % (16.0-70.0); Platelet Count 225 th/mm3 (150-450); Red Blood Count 3.96 mil/mm3 (4.50-5.90); Red Cell Distribution Width 13.6 % (11.6-17.2); White Blood Count 6.4 th/mm3 (4.0-11.0)
--- NOTE | 2017-11-13 14:18 | XR ---
EXAM DATE: 11/13/2017 2:15 PM EDT AGE/SEX: 47 years / Male INDICATIONS: Chest pain. CLINICAL DATA: This is the patient's initial encounter. Patient reports that signs and symptoms have been present for 1 day and indicates a pain score of 3/10. MEDICAL/SURGICAL HISTORY: Hypercholesterolemia. Myocardial infarction. Smoker. Coronary arter y stent. COMPARISON: [facility] [place], CHEST SINGLE AP, 08/13/2017. . FINDINGS: A single AP view of the chest demonstrates the lungs to be symmetrically aerated without evidence of mass, infiltrate or effusion. The cardiomediastinal contours are unremarkable. Osseous structures a re intact. CONCLUSION: Negative examination. Electronically signed by: Doc Dos Santos MD 11/13/2017 2:16 PM EDT
[2017-11-13 14:30] LABS: Prothrombin Time 10.5 sec (9.8-11.6)
[2017-11-13 14:42] LABS: Alanine Aminotransferase 44 U/L (12-78); Albumin 3.6 g/dL (3.4-5.0); Anion Gap 7 meq/L (5-15); Aspartate Aminotransferase 28 U/L (15-37); Blood Urea Nitrogen 17 mg/dL (7-18); Calcium 8.7 mg/dL (8.5-10.1); Carbon Dioxide 26.7 meq/L (21.0-32.0); Chloride 105 meq/L (98-107); Glomerular Filtration Rate 86 mL/min (>89); Glucose,Random 157 mg/dL (74-106); Potassium 3.8 meq/L (3.5-5.1); Sodium 139 meq/L (136-145)
[2017-11-13 14:55] LABS: Alkaline Phosphatase 153 U/L (45-117); Creatine Kinase 493 U/L (39-308); Total Protein 7.5 g/dL (6.4-8.2); Troponin I 0.06 ng/mL (0.02-0.05)
[2017-11-13 15:07] LABS: CKMB Percent 0.7 % (0.0-4.0); Creatine Kinase MB 3.6 ng/mL (0.5-3.6)
[2017-11-13] MEDS ORDERED: Heparin 10,000 UNITS/10 ML Vial (for IV use) IV.PUSH STA (15:31)
[2017-11-13] MEDS ORDERED: Heparin Drip 25,000 UNIT/250 ML BAG IV.CONT PRN (15:31)
[2017-11-13] MEDS ORDERED: Acetaminophen 325 MG Tablet PO PRN (16:00)
[2017-11-13] MEDS ORDERED: Morphine Inj 4 MG/ML Vial IV.PUSH PRN (16:22)
--- NOTE | 2017-11-13 16:30 | P.HPIM ---
History of Present Illness Primary Care Physician: No Primary Care Physician Chief Complaint: Shoulder pain History of Present Illness: The patient is a 47 year old male with a past medical history of MT s/p two stents who is presenting to the hospital with left shoulder and left chest wall pain. 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 He felt a 3/10 pain at the top of his left shoulder and then it radiated down to the left upper chest wall. He said the pain would come and go. He denied any associated shortness of breath. He was sweating but he said it was very hot where he worked. He was getting ready to go to work today but his family recommended he come to the hospital because he was still having the same pain. The patient's symptoms improved with a dose of nitro. The patient says that he misses a dose of his medications every once in a while and is not sure why that is. He said his last heart attack was in September. He says sometimes he gets dizzy when getting up too fast. Currently he has no symptoms. He says he has chronic leg swelling. Inpatient Certification: I certify that the inpatient services were ordered in accordance with Medicare regulations governing the order. This includes certification that hospital inpatient services are reasonable and necessary and in the case of services not specified as inpatient-only under 42 CFR 419.22(n), that they are appropriately provided as inpatient services in accordance to with the 2-midnight benchmark under 43 CFR 412.3(e) Estimated Total Length of Stay (Days): 2 Plans for Post Hospital Care: Home Review of Systems All other systems reviewed negative except as stated in HPI [facility] - History History Provided By: Patient - Medical History Medical History: Medical History (Last Reviewed 11/13/17 @ 16:31 by Francois Gonzalez DO) High cholesterol Hypertension Myocardial infarction - Surgical History Surgical History: Surgical History (Last Updated 11/13/17 @ 13:39 by Rebekah Fajardo) Stented coronary artery - Family History Family History: Family History (Last Updated 11/13/17 @ 16:31 by Francois Gonzalez DO) Other Patient denies significant medical history - Social History I have reviewed the patient's Social History: Yes - Tobacco History Second Hand Smoke Exposure: Yes Tobacco Use In Past 30 Days: Yes Smoking Status: Current some day smoker Tobacco Type: Cigarettes, Cigars - Alcohol History How Often Do You Have a Drink Containing Alcohol: Never - Substance Use History Substance History: Past History - Substance Use Type Crack/Cocaine Status: Sustained Remission Route Used: By Mouth - Travel History Recent Travel in the [place] Within the Last 8 Weeks: No Recent Travel Out of the Country Within the Last 8 Weeks: No - Immunization History Tetanus Immunization: <5 Years Hx Influenza Vaccine This Season: Yes Medications and Allergies Active Medications: Active Medications Acetaminophen (Tylenol) 650 mg PO Q4H PRN PRN Reason: Temp > 100.4 Aspirin (Ecotrin) 81 mg PO DAILY [facility] Atorvastatin Calcium (Lipitor) 40 mg PO DAILY [facility] Heparin Sodium/Dextrose (Heparin/D5w 25,000 U/250 Ml) 25,000 unit in 250 mls @ 0 mls/hr IV.CONT TITRATE PRN; Protocol PRN Reason: Per Protocol Last Titration: 11/13/17 16:08 Dose: 1,000 units/hr, 10 mls/hr Lisinopril (Prinivil) 5 mg PO DAILY [facility] Metoprolol Tartrate (Lopressor) 25 mg PO BID [facility] Morphine Sulfate (Morphine Inj) 4 mg IV.PUSH Q4H PRN PRN Reason: BREAKTHROUGH PAIN Oxycodone HCl (Roxicodone) 5 mg PO Q4H PRN PRN Reason: pain 3-10 Senna/Docusate Sodium (Tatiana-Colace) 1 tab PO BID [facility] Sodium Chloride (Ns Flush) 2 ml IV.FLUSH UNSCH PRN PRN Reason: FLUSH AFTER USING IV ACCESS Ticagrelor (Brilinta) 90 mg PO BID [facility] Allergies Allergy/AdvReac Type Severity Reaction Status Date / Time No Known Allergies Allergy Unknown NONE Uncoded 11/13/17 13:37 Home Medications Medication Instructions Recorded Confirmed Type aspirin 81 mg PO DAILY 11/13/17 11/13/17 History atorvastatin 40 mg PO DAILY 11/13/17 11/13/17 History lisinopril 5 mg PO DAILY 11/13/17 11/13/17 History metoprolol tartrate 25 mg PO BID 11/13/17 11/13/17 History ticagrelor [Brilinta] 90 mg PO BID 11/13/17 11/13/17 History Exam Vital signs: Vital Signs 11/13/17 13:19 11/13/17 13:21 11/13/17 14:00 Temperature 98.5 F Pulse Rate 73 70 68 Respiratory Rate 20 18 16 Blood Pressure 146/76 H 113/63 108/56 L Pulse Oximetry 99 96 97 11/13/17 15:00 Temperature Pulse Rate 54 L Respiratory Rate 16 Blood Pressure 99/53 L Pulse Oximetry 97 Intake & Output 11/12/17 11/13/17 11/13/17 18:59 06:59 18:59 Weight 87.997 kg Narrative: GENERAL: This is a well-developed well-nourished male in no acute distress. SKIN: Warm and dry. HEAD: Atraumatic. Normocephalic. EYES: Pupils equal and round. No scleral icterus. No injection or drainage. ENT: No nasal bleeding or discharge. Mucous membranes pink and moist. NECK: Trachea midline. No JVD. CARDIOVASCULAR: Regular rate and rhythm. No murmur appreciated. RESPIRATORY: No accessory muscle use. Clear to auscultation. Breath sounds equal bilaterally. GASTROINTESTINAL: Abdomen soft, non-tender, nondistended. Hepatic and splenic margins not palpable. MUSCULOSKELETAL: No obvious deformities. No clubbing. No cyanosis. TR LE edema. NEUROLOGICAL: Awake and alert. No obvious cranial nerve deficits. Motor grossly within normal limits. Normal speech. PSYCHIATRIC: Appropriate mood and affect; insight and judgment normal. Results - Labs CBC & Chem 7: 11/13/17 13:45 11/13/17 13:45 Labs: Short CBC 11/13/17 Range/Units 13:45 WBC 6.4 (4.0-11.0) th/mm3 Hgb 13.1 (13.0-17.0) gm/dL Hct 39.2 (39.0-51.0) % Plt Count 225 (150-450) th/mm3 BMP 11/13/17 13:45 Sodium 139 Potassium 3.8 Chloride 105 Carbon Dioxide 26.7 BUN 17 Creatinine 1.11 Calcium 8.7 Cardiac Enzymes 11/13/17 Range/Units 13:45 Total Creatine Kinase 493 H (39-308) U/L CK-MB (CK-2) 3.6 (0.5-3.6) ng/mL Troponin I 0.06 H (0.02-0.05) ng/mL Liver Function 11/13/17 Range/Units 13:45 Total Bilirubin 0.6 (0.2-1.0) mg/dL AST 28 (15-37) U/L ALT 44 (12-78) U/L Alkaline Phosphatase 153 H (45-117) U/L Albumin 3.6 (3.4-5.0) g/dL - Imaging Impressions Chest X-Ray 11/13/17 13:31 CONCLUSION: Negative examination. Caprini VTE Risk Assessment Caprini VTE Risk Assessment: Moderate/High Risk (score >= 2) Caprini Risk Assessment Model: Point Value = 1 Point Value = 2 Point Value = 3 Point Value = 5 Age 41-60 Minor surgery BMI > 25 kg/m2 Swollen legs Varicose veins or History of unexplained or recurrent spontaneous Oral contraceptives or hormone replacement Sepsis (< 1 month) Serious lung disease, including pneumonia (< 1 month) Abnormal pulmonary function Acute myocardial infarction Congestive heart failure (< 1 month) History of inflammatory bowel disease Medical patient at bed rest Age 61-74 Arthroscopic surgery Major open surgery (> 45 min) Laparoscopic surgery (> 45 min) Malignancy Confined to bed (> 72 hours) Immobilizing plaster cast Central venous access Age >= 75 History of VTE Family history of VTE Factor V Leiden Prothrombin [id number] Lupus anticoagulant Anticardiolipin antibodies Elevated serum homocysteine Heparin-induced thrombocytopenia Other congenital or acquired thrombophilia Stroke (< 1 month) Elective arthroplasty Hip, pelvis, or leg fracture Acute spinal cord injury (< 1 month) Prophylaxis Regimen: Total Risk Factor Score Risk Level Prophylaxis Regimen 0-1 Low Early ambulation 2 Moderate Order ONE of the following: *Sequential Compression Device (SCD) *Heparin 5000 units SQ BID 3-4 Higher Order ONE of the following medications: *Heparin 5000 units SQ TID *Enoxaparin/Lovenox 40 mg SQ daily (WT < 150 kg, CrCl > 30 mL/min) *Enoxaparin/Lovenox 30 mg SQ daily (WT < 150 kg, CrCl > 10-29 mL/min) *Enoxaparin/Lovenox 30 mg SQ BID (WT < 150 kg, CrCl > 30 mL/min) AND/OR *Sequential Compression Device (SCD) 5 or more Highest Order ONE of the following medications: *Heparin 5000 units SQ TID (Preferred with Epidurals) *Enoxaparin/Lovenox 40 mg SQ daily (WT < 150 kg, CrCl > 30 mL/min) *Enoxaparin/Lovenox 30 mg SQ daily (WT < 150 kg, CrCl > 10-29 mL/min) *Enoxaparin/Lovenox 30 mg SQ BID (WT < 150 kg, CrCl > 30 mL/min) AND *Sequential Compression Device (SCD) Assessment and Plan - Plan Left shoulder/ chest wall pain The pt has a history of STEMI, s/p two stents. EKG without acute ischemia. Initial troponin 0.06. Pain resolved with nitro. -pain control and oxygen as needed. -telemetry. -trend trops and EKG. -cardiology consult requested. Heparin gtt started. Plan for possible cath in AM. NPO at midnight. Rhabdomyolysis Secondary to above. -IVFs and follow CPK. Hypotension Blood pressure has been on the low side. -hold lisinopril for now. -Lopressor with holding parameters. -IVFs. Hyperglycemia May be a stress reaction. -check an A1c. Nicotine abuse The pt continues to smoke. -cessation instruction. -nebs as needed. PPx: Heparin
--- NOTE | 2017-11-13 17:54 | MB ---
cc: Luiz Griffin MD DATE: 11/13/2017 REASONS FOR CONSULTATION: Chest pain, rule out acute coronary syndrome, slightly abnormal troponin level. HISTORY OF PRESENT ILLNESS: The patient is a 47-year-old male, followed in our office by Dr. Jose L Reyes, with a history of coronary artery disease, hyperlipidemia, moderately severe ischemic cardiomyopathy, and hypertension, who was doing pretty well up until yesterday evening, when he began to experience left shoulder discomfort, which lasted about an hour. He was initially not too concerned, but the discomfort recurred again today, without associated shortness of breath, nausea, or diaphoresis. Today, he also began to experience left axillary discomfort described as "sharp" lasting up to 2 hours. He denies dizziness, syncope, near syncope, pedal edema, and paroxysmal nocturnal dyspnea. Infrequently, he experiences fleeting fluttering palpitations. The patient reports compliance with his medications. PAST MEDICAL HISTORY: 1. Coronary artery disease, status post inferior ST elevation myocardial infarction 07/03/2017, subsequently undergoing stent of the mid left circumflex with a 2.5 x 30-mm Resolute Lee stent and stent of the mid obtuse marginal with a 2.5 x 15-mm Resolute Lee stent by Dr. Dougie Berger. The patient had recurrent ST elevation myocardial infarction 08/13/2017, possibly due to medical noncompliance. He was found to have a totally occluded proximal left circumflex at the proximal edge of the mid left circumflex stent. He underwent repeat stenting of the left circumflex using a 3.0 x 15-mm Resolute Lee by Dr. Fred Rodriguez. 2. Moderately severe ischemic cardiomyopathy with ejection fraction of 35% by his heart catheterization 08/13/2017. 3. Hyperlipidemia. 4. Hypertension. CARDIAC MEDICATIONS AT HOME: 1. Brilinta 90 mg b.i.d. 2. Metoprolol tartrate 25 mg b.i.d. 3. Lisinopril 5 mg daily. 4. Aspirin 81 mg daily. 5. Atorvastatin 40 mg at bedtime. ALLERGIES: NO KNOWN DRUG ALLERGIES. FAMILY HISTORY: Noncontributory. SOCIAL HISTORY: The patient smokes about a pack of cigarettes every 2 weeks. Prior to that, he was smoking up to 5 packs of cigarettes in a week. He denies alcohol abuse. REVIEW OF SYSTEMS: As in the history of present illness, otherwise negative or noncontributory. He also denies headache, abdominal pain, melena, dyspepsia, bright red blood per rectum, cough, wheezing. PHYSICAL EXAMINATION: VITAL SIGNS: Blood pressure 105/53 with a pulse of 52, respirations 16. GENERAL: He is a well-developed, well-nourished male in no acute distress. NECK: Jugular venous pressure is normal. Carotid pulses are 2+ bilaterally and without bruits. CHEST: Reveals clear lung qiu. CARDIAC: He has a bradycardic, regular rhythm without S3, S4, or murmurs. ABDOMEN: He has a soft, nontender abdomen. Bowel sounds are present. There is no definite hepatosplenomegaly. EXTREMITIES: Reveals no clubbing, cyanosis, or edema. Peripheral pulses are normal throughout. LABORATORY DATA: Includes normal CBC. BUN 17, creatinine 1.11, CK 493, CK-MB percentage 0.7, troponin 0.06. DIAGNOSTIC DATA: EKG shows sinus bradycardia, inferior infarct, old, inferior T-wave inversion, consider ischemia. Chest x-ray shows no acute disease. IMPRESSION: Exceedingly atypical symptoms for myocardial ischemia or infarction in this 47-year-old male with a history of coronary artery disease, status post 2 ST elevation myocardial infarctions this year, with placement of 3 stents in the left circumflex system, history of ejection fraction 35%, hypertension, hyperlipidemia. The patient's pains are basically left shoulder and left axillary. The patient states these symptoms are extremely dissimilar from his myocardial infarction pains in the past. Troponin is minimally elevated at 0.06. CK-MB percentage is negative for myocardial infarction, despite fairly prolonged discomfort the past couple of days. EKG shows no acute ST segment changes. The patient does report compliance with his medications. RECOMMENDATIONS: 1. Check serial cardiac enzymes. If CK levels remain negative for myocardial infarction and troponin levels remain flat, he can be discharged home tomorrow morning from a cardiac standpoint. 2. Continue his usual home cardiac medications. MD NUNU Tamez/daniela , 05:18 PM , 05:29 PM SARA
[2017-11-13] MEDS: Senna/Docusate Sodium 8.6/50 MG Tablet PO SCH (20:06)
[2017-11-13] MEDS: Metoprolol Tartrate 25 MG Tablet PO SCH ×2 (20:13→21:34)
[2017-11-13] MEDS: Sod Chloride 0.9% Inj 1,000 ML IV.CONT SCH (20:18)
[2017-11-14] MEDS: Sod Chloride 0.9% Inj 1,000 ML IV.CONT SCH (03:50)
[2017-11-14 07:26] LABS: Baso # (Auto) 0.1 th/mm3 (0.0-0.2); Baso % (Auto) 0.9 % (0.0-2.0); Eos # (Auto) 0.2 th/mm3 (0.0-0.4); Eos % (Auto) 3.5 % (0.0-4.0); Hematocrit 36.5 % (39.0-51.0); Hemoglobin 12.4 gm/dL (13.0-17.0); Lymph # (Auto) 2.7 th/mm3 (1.0-4.8); Lymph % (Auto) 40.5 % (9.0-44.0); Mean Corpuscular HGB Conc 33.9 % (32.0-36.0); Mean Corpuscular Hemoglobin 33.3 pg (27.0-34.0); Mean Corpuscular Volume 98.3 fL (80.0-100.0); Mean Platelet Volume 9.4 fL (7.0-11.0); Mono # (Auto) 0.5 th/mm3 (0.0-0.9); Mono % (Auto) 6.8 % (0.0-8.0); Neut # (Auto) 3.2 th/mm3 (1.8-7.7); Neut % (Auto) 48.3 % (16.0-70.0); Platelet Count 223 th/mm3 (150-450); Red Blood Count 3.72 mil/mm3 (4.50-5.90); Red Cell Distribution Width 13.3 % (11.6-17.2); White Blood Count 6.6 th/mm3 (4.0-11.0)
[2017-11-14 08:06] LABS: Alanine Aminotransferase 37 U/L (12-78); Alkaline Phosphatase 140 U/L (45-117); Anion Gap 8 meq/L (5-15); Aspartate Aminotransferase 24 U/L (15-37); Blood Urea Nitrogen 16 mg/dL (7-18); Calcium 7.8 mg/dL (8.5-10.1); Carbon Dioxide 27.3 meq/L (21.0-32.0); Chloride 108 meq/L (98-107); Creatine Kinase 261 U/L (39-308); Glomerular Filtration Rate Greater Than 89 mL/min (>89); Glucose,Random 115 mg/dL (74-106); Sodium 143 meq/L (136-145); Total Protein 6.6 g/dL (6.4-8.2)
[2017-11-14] MEDS: Metoprolol Tartrate 25 MG Tablet PO SCH (08:24)
[2017-11-14] MEDS: Senna/Docusate Sodium 8.6/50 MG Tablet PO SCH (08:46)
[2017-11-14 08:55] VITALS: BP 99/57; RESP 18; TEMP 97.9
[2017-11-14] MEDS ORDERED: Lisinopril 5 MG Tablet PO SCH (09:00)
--- NOTE | 2017-11-14 09:05 | P.PNCA ---
Subjective Interval history: Denies angina, shoulder or axillary pain, dyspnea, dizziness. Slept very little. Physical Exam Vital signs: Vital Signs 11/13/17 13:19 11/13/17 13:21 11/13/17 14:00 Temperature 98.5 F Pulse Rate 73 70 68 Respiratory Rate 20 18 16 Blood Pressure 146/76 H 113/63 108/56 L Pulse Oximetry 99 96 97 11/13/17 15:00 11/13/17 16:00 11/13/17 17:30 Temperature Pulse Rate 54 L 52 L 54 L Respiratory Rate 16 16 14 Blood Pressure 99/53 L 105/53 L 103/67 Pulse Oximetry 97 99 97 11/13/17 18:00 11/13/17 20:00 11/14/17 00:00 Temperature 97.8 F 97.8 F Pulse Rate 52 L 52 L 81 Respiratory Rate 16 16 16 Blood Pressure 104/58 L 106/52 L 107/61 Pulse Oximetry 100 97 96 11/14/17 04:00 11/14/17 08:00 Temperature 96.8 F L 97.9 F Pulse Rate 46 L 52 L Respiratory Rate 16 18 Blood Pressure 97/54 L 99/57 L Pulse Oximetry 96 99 Intake & Output 11/13/17 11/14/17 11/14/17 18:59 06:59 18:59 Intake Total 1000 / 1000 1000 / 1000 Balance 1000 / 1000 1000 / 1000 Weight 87.997 kg 87.7 kg Intake: IV 1000 / 1000 1000 / 1000 NS Inj 1,000 ML @ 100 mls/hr IV 1000 / 1000 1000 / 1000 .CONT .Q10H [facility] Rx#:[id number] Other: # Voids 5 Weight On Admission 88 kg - Constitutional no acute distress - Routine Neck Exam Absent: JVD - Routine Respiratory Exam Present: CTA bilaterally - Routine Cardiovascular Exam Present: RRR, S1, S2. Absent: murmur, gallop - Routine Abdominal Exam Present: soft, normoactive bowel sounds. Absent: tenderness, organomegaly - Routine Extremities Exam Absent: cyanosis, clubbing, edema Assessment and Plan - Assessment (1) Coronary artery disease Code(s): I25.10 - Atherosclerotic heart disease of [place] coronary artery without angina pectoris Status: Chronic Plan: Stable overnight. No further atypical shoulder and mid axillary pain. Troponin remains at 0.06. OK to discharge today from a cardiac standpoint. (2) Hyperlipidemia Code(s): E78.5 - Hyperlipidemia, unspecified Status: Chronic Plan: Monitored as outpatient. Continue statin therapy. (3) Hypertension Code(s): I10 - Essential (primary) hypertension Status: Chronic Plan: Stable. Hypertension not active issue. - Plan Code Status: full code Discussed Condition With: patient (1) Coronary artery disease Qualifiers: Coronary Disease-Associated Artery/Lesion type: [place] artery [place] vs. transplanted heart: [place] heart Associated angina: without angina Qualified Code(s): I25.10 - Atherosclerotic heart disease of [place] coronary artery without angina pectoris (2) Hyperlipidemia Qualifiers: Hyperlipidemia type: unspecified Qualified Code(s): E78.5 - Hyperlipidemia, unspecified (3) Hypertension Qualifiers: Hypertension type: essential hypertension Qualified Code(s): I10 - Essential (primary) hypertension
[2017-11-14 10:44] VITALS: O2SAT 96
[2017-11-14 12:26] VITALS: PULSE 57
--- NOTE | 2017-11-14 12:32 | P.PNIM ---
Physical Exam Vital signs: Vital Signs 11/13/17 13:19 11/13/17 13:21 11/13/17 14:00 Temperature 98.5 F Pulse Rate 73 70 68 Respiratory Rate 20 18 16 Blood Pressure 146/76 H 113/63 108/56 L Pulse Oximetry 99 96 97 11/13/17 15:00 11/13/17 16:00 11/13/17 17:30 Temperature Pulse Rate 54 L 52 L 54 L Respiratory Rate 16 16 14 Blood Pressure 99/53 L 105/53 L 103/67 Pulse Oximetry 97 99 97 11/13/17 18:00 11/13/17 20:00 11/14/17 00:00 Temperature 97.8 F 97.8 F Pulse Rate 52 L 52 L 81 Respiratory Rate 16 16 16 Blood Pressure 104/58 L 106/52 L 107/61 Pulse Oximetry 100 97 96 11/14/17 04:00 11/14/17 08:00 11/14/17 10:41 Temperature 96.8 F L 97.9 F Pulse Rate 46 L 52 L Respiratory Rate 16 18 Blood Pressure 97/54 L 99/57 L Pulse Oximetry 96 99 96 11/14/17 12:00 Temperature Pulse Rate 57 L Respiratory Rate Blood Pressure Pulse Oximetry Intake & Output 11/13/17 11/14/17 11/14/17 18:59 06:59 18:59 Intake Total 1000 / 1000 1000 / 1000 Balance 1000 / 1000 1000 / 1000 Weight 87.997 kg 87.7 kg Intake: IV 1000 / 1000 1000 / 1000 NS Inj 1,000 ML @ 100 mls/hr IV 1000 / 1000 1000 / 1000 .CONT .Q10H [facility] Rx#:[id number] Other: # Voids 5 Weight On Admission 88 kg Results - Labs CBC & Chem 7: 11/14/17 06:53 11/14/17 06:53 Laboratory Results - last 24 hr 11/13/17 11/13/17 11/13/17 13:45 13:45 13:45 WBC 6.4 RBC 3.96 L Hgb 13.1 Hct 39.2 MCV 99.1 MCH 33.1 MCHC 33.4 RDW 13.6 Plt Count 225 MPV 9.5 Neut % (Auto) 62.6 Lymph % (Auto) 28.2 Mineral % (Auto) 7.0 Eos % (Auto) 1.6 Baso % (Auto) 0.6 Neut # (Auto) 4.0 Lymph # (Auto) 1.8 Mineral # (Auto) 0.4 Eos # (Auto) 0.1 Baso # (Auto) 0.0 WBC Differential . Differential Comment Auto diff final PT 10.5 INR 1.0 APTT 25.0 Sodium 139 Potassium 3.8 Chloride 105 Carbon Dioxide 26.7 Anion Gap 7 BUN 17 Creatinine 1.11 Estimated GFR 86 L Random Glucose 157 H Hemoglobin A1c Calcium 8.7 Total Bilirubin 0.6 AST 28 ALT 44 Alkaline Phosphatase 153 H Total Creatine Kinase 493 H CK-MB (CK-2) 3.6 CK-MB (CK-2) % 0.7 Troponin I 0.06 H Total Protein 7.5 Albumin 3.6 11/13/17 11/13/17 11/13/17 13:45 20:41 23:16 WBC RBC Hgb Hct MCV MCH MCHC RDW Plt Count MPV Neut % (Auto) Lymph % (Auto) Mineral % (Auto) Eos % (Auto) Baso % (Auto) Neut # (Auto) Lymph # (Auto) Mineral # (Auto) Eos # (Auto) Baso # (Auto) WBC Differential Differential Comment PT INR APTT 29.7 Sodium Potassium Chloride Carbon Dioxide Anion Gap BUN Creatinine Estimated GFR Random Glucose Hemoglobin A1c 6.0 Calcium Total Bilirubin AST ALT Alkaline Phosphatase Total Creatine Kinase CK-MB (CK-2) CK-MB (CK-2) % Troponin I 0.06 H Total Protein Albumin 11/14/17 11/14/17 11/14/17 06:53 06:53 06:53 WBC 6.6 RBC 3.72 L Hgb 12.4 L Hct 36.5 L MCV 98.3 MCH 33.3 MCHC 33.9 RDW 13.3 Plt Count 223 MPV 9.4 Neut % (Auto) 48.3 Lymph % (Auto) 40.5 Mineral % (Auto) 6.8 Eos % (Auto) 3.5 Baso % (Auto) 0.9 Neut # (Auto) 3.2 Lymph # (Auto) 2.7 Mineral # (Auto) 0.5 Eos # (Auto) 0.2 Baso # (Auto) 0.1 WBC Differential . Differential Comment Auto diff final PT INR APTT 36.3 H D Sodium 143 Potassium 4.0 Chloride 108 H Carbon Dioxide 27.3 Anion Gap 8 BUN 16 Creatinine 0.99 Estimated GFR Greater than 89 Random Glucose 115 H Hemoglobin A1c Calcium 7.8 L D Total Bilirubin 0.5 AST 24 ALT 37 Alkaline Phosphatase 140 H Total Creatine Kinase 261 CK-MB (CK-2) CK-MB (CK-2) % Troponin I Total Protein 6.6 D Albumin 3.0 L D - Imaging Impressions Chest X-Ray 11/13/17 13:31 CONCLUSION: Negative examination. Assessment and Plan - Plan //Left shoulder/ chest wall pain The pt has a history of STEMI, s/p two stents. EKG without acute ischemia. Initial troponin 0.06. Pain resolved with nitro. -pain control and oxygen as needed. -telemetry. -trend trops and EKG. -cardiology consult requested. Heparin gtt started. Plan for possible cath in AM. NPO at midnight. = Chest pain resolved. Patient cleared by cardiology for discharge. Drug screen pending. Patient advised to stop smoking. //Rhabdomyolysis Secondary to above. -IVFs and follow CPK. = CPK improved. //Hypotension Blood pressure has been on the low side. -hold lisinopril for now. -Lopressor with holding parameters. -IVFs. //Hyperglycemia May be a stress reaction. -check an A1c. //Nicotine abuse The pt continues to smoke. -cessation instruction. -nebs as needed. = Patient again advised to stop smoking. //PPx: Heparin Discharge Planning: Discharge home. Follow-up with cardiology as outpatient.
--- NOTE | 2017-11-14 13:51 | ECG ---
Date Performed: 11/13/2017 Time Performed: 13:27:24 PTAGE: 47 years EKG: Sinus rhythm PROBABLE INFERIOR MYOCARDIAL INFARCTION ABNORMAL ECG Since the PREVIOUS TRACING , no significant change noted PREVIOUS TRACIN08/14/2017 06.10 DOCTOR: Heather Andrade Interpretating Date/Time 11/14/2017 13:49:37
--- NOTE | 2017-11-14 13:52 | ECG ---
Date Performed: 11/13/2017 Time Performed: 19:59:35 PTAGE: 47 years EKG: SINUS BRADYCARDIA INFERIOR MYOCARDIAL INFARCTION , OF INDETERMINATE AGE WITH POSTERIOR EXTE NSION ABNORMAL ECG Since the PREVIOUS TRACING , no significant change noted PREVIOUS TRACIN11/13/2017 13.27 DOCTOR: Heather Andrade Interpretating Date/Time 11/14/2017 13:49:46
[2017-11-14 14:14] LABS: Amphetamine Screen,Urine Neg (Neg); Barbiturate Screen,Urine Neg (Neg); Cannabinoid Screen,Urine Pos (Neg); Cocaine Screen,Urine Pos (Neg)
[2017-11-14 14:19] LABS: Opiate Screen,Urine Neg (Neg)
== END 2017-11-14 14:13 | disposition home or self-care (01) ==
LOC: NEPC 13:13 → NEDA 15:58 → N04 18:35
PROVIDERS: ADMIT Internal Medicine; ATTEND Internal Medicine